=== PATIENT | female | born 1960 ===

== ENCOUNTER 2023-07-15 09:55 | Outpatient (AMB) | payer OTHER, SELFPAY ==
[2023-07-15 10:00] VITALS: BP 120/62; PULSE 64; O2SAT 98; BMI 25.7
--- NOTE | 2023-07-15 10:00 | A.OFFPC_ITS ---
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 Patient is requesting a brace for right wrist. Allergies No Known Allergies Allergy (Verified 07/15/23 10:03) Medication List - Last Reconciled 07/15/23 by Jovanny Rich MD No Known Home Meds Tobacco use date assessed: 07/15/23 Fall risk assessment: No Falls in past year Last assessed Fall Risk: 07/15/23 Dental Screening Dental Screen Date: 07/15/23 Did you have a dental visit in the last 12 months?: No Did you have a dental problem in the last 6 months where you did not have access to dental care?: No Was dental information given to patient?: Patient has dentist HPI PERSONALIZED LIVING MANAGER NURSE/Chronic conditions HPI Details New patient Prior PCP:Gene Kent Last office visit/CPE: Acute issue(s): Rash Anxiety/depression Screening?for?colon?cancer. Last colonoscopy 11/2019 recommended 3 yr f/u. Right?wrist?pain PMHx: Anxiety/Depression, SurgHx: GB 2019. C-sect x 3 FHx: Mom: CAD & Stents. afib.. Dad: intracranial tumor. SocHx: Nonsmoker but 2nd hand smoke. EtOh Rarely. No drugs HPI Comments History of Present Illness Details Documentation assistance for Jovanny Rich MD, was provided by Basil Daniel,? High School Assistant Football Coach on 07/15/2023 10:45 AM EST. [place], Dr. Rich, have read, observed, and verified documentation. PFSH Medical History (Updated 07/15/23 @ 10:38 by Basil Daniel) delivery delivered Colon polyps Surgical History (Updated 07/15/23 @ 10:08 by Radha Estes [facility]) S/P cholecystectomy Family History (Updated 07/15/23 @ 10:13 by Radha Estes CMA) Maternal Grandmother Substance abuse in family Maternal Grandfather Substance abuse in family Daughter Family history of mental disorder Social History Housing: House Patient Tobacco Use Status: Former Tobacco user e-Cigarette/Vaping Use: Never Used service: Yes Current occupational status: retired Cognitive needs: No Hearing needs: No Vision needs: Yes (Patient wears reading glasses.) Questionnaire PHQ-9 Over the last 2 weeks, how often have you been bothered by any of the following problems? 1. Little interest or pleasure in doing things: more than half the days 2. Feeling down, depressed, or hopeless: several days 3. Trouble falling or staying asleep, or sleeping too much: several days 4. Feeling tired or having little energy: several days 5. Poor appetite or overeating: several days 6. Feeling bad about yourself - or that you are a failure or have let yourself or your family down: several days 7. Trouble concentrating on things, such as reading the newspaper or watching television: several days 8. Moving or speaking so slowly that other people could have noticed. Or the opposite - being so fidgety or restless that you have been moving around a lot more than usual: several days 9. Thoughts that you would be better off or of hurting yourself in some way: not at all Total score: 9 Depression Screening Interpretation: Positive Depression Screening Done: Yes 70695 - PHQ-9 Billing: Yes Source: Developed by Drs. Brandon Evans, Siria Pack, Wei Jefferson and colleagues, with an educational shayy from [employer]. Thrive Questionnaire Date Thrive assessed: 07/15/23 I am a: Patient What is your living situation today?: I have a steady place to live Within the past 12 months, did the food you bought not last and you didn't have the money to get more?: Never true Within the past 12 months, did you worry whether your food would run out before you got money to buy more?: Never true Do you have trouble paying for medicines?: No Do you have trouble getting transportation to medical appointments?: No Do you have trouble paying your heating and electricity bill?: No Do you have trouble taking care of your child, family member or friend?: No Do you have trouble with day-to-day activities such as bathing, preparing meals, shopping, managing finances, etc.?: No Are you currently unemployed and looking for a job?: No Are you interested in more education?: Yes THRIVE Score: 0 AUDIT C Alcohol Use Questionnaire (AUDIT-C) 1. How often do you have a drink containing alcohol?: Monthly or less 2. How many drinks containing alcohol do you have on a typical day when you are drinking?: 1 or 2 3. How often do you have six or more drinks on one occasion?: Never Total Score: 1 MICAELA-7 AMB Questionnaire MICAELA-7 Date MICAELA - 7 assessed: 07/15/23 Feeling nervous, anxious, or on edge: 3 = Nearly every day Not being able to stop or control worryin = Nearly every day Worrying too much about different things: 3 = Nearly every day Trouble relaxin = Nearly every day Being so restless that it is hard to sit still: 2 = More than half the days Becoming easily annoyed or irritable: 3 = Nearly every day Feeling afraid as if something awful might happen: 1 = Several days Total MICAELA-7 score (0-4 normal; 5-9 mild; 10-14 moderate; 15-21 severe): 18 Source: Developed by Drs. Brandon Evans, Siria Pack, Wei Jefferson and colleagues, with an educational shayy from [employer]. MICAELA-7 Assessment Billing MICAELA-7 Assessment Tool: MICAELA-7 Assessment 39616 ACT Questionnaire In the past 4 weeks, how much of the time did your asthma keep you from getting as much done at work, school or at home?: A little of the time During the past 4 weeks, how often have you had shortness of breath?: Once a day During the past 4 weeks, how often did your asthma symptoms wake you up at night or earlier than usual in the morning?: Not at all During the past 4 weeks, how often have you had to use your rescue inhaler or nebulizer medication?: Not at all How would you rate your asthma control during the past 4 weeks?: Somewhat controlled Score: 19 Review of Systems Const Denies chills, Denies fatigue, Denies fever(s), Denies headache(s) and Denies weakness ENT Denies dizziness and Denies headache(s) Card Denies chest pain, Denies lightheadedness, Denies dyspnea and Denies other (Palpitations) Resp Denies cough, Denies dyspnea, Denies wheezing and Denies other ( shortness of breath) Musc Denies numbness and Denies tingling Skin/Breast Reports rash Neuro Denies dizziness, Denies headache(s), Denies numbness, Denies tingling, Denies paresthesias and Denies weakness Psych Reports anxiety and Reports depression Endo Denies fatigue Aller/Immun Denies wheezing Physical exam (Primary Care) Vital Signs: Last Vital Signs Pulse 64 07/15/23 10:00 BP 120/62 07/15/23 10:00 Pulse Ox 98 07/15/23 10:00 Oxygen Delivery Method Room Air 07/15/23 10:00 BMI result Body Mass Index 25.7 Tobacco/Smoking Status: Tobacco use Status Tobacco use date assessed 07/15/23 07/15/23 10:04 Patient Tobacco Use Status Former Tobacco user 07/15/23 10:04 e-Cigarette/Vaping Use Never Used 07/15/23 10:04 PHQ-9: PHQ-9 Score PHQ-9: Total score 9 07/15/23 10:27 Depression Screening Interpretation: Positive Thrive Assessment: Date of Thrive Assessment Date Thrive assessed 07/15/23 07/15/23 10:23 Const General: no acute distress and well developed Nutritional Appearance: well nourished Orientation/consciousness: patient oriented x3 [facility] Head: Yes normocephalic and Yes atraumatic Eyes General: appearance normal, both eyes and all related structures Pupils: Equal, round and reactive pupils present EOM: EOMs intact bilaterally Resp Effort & Inspection: normal respiratory effort Auscultation: clear to auscultation bilaterally Cardio Rate: regular rate Rhythm: regular rhythm Heart sounds: S1 normal heart sound present, S2 normal heart sound present, no gallops, no murmurs and no rubs Neuro General: patient oriented x3 and gait normal Cranial nerves: Yes Equal, round and reactive pupils present Psych Affect: normal affect Assessment and Plan Assessment & Plan (1) Anxiety and depression: Code(s): F41.9 - Anxiety disorder, unspecified; F32.A - Depression, unspecified Plan: History?of?anxiety?and?depression?and?scoring?high?in?micaela?7?and?PHQ-9 She?had?been?on?Zoloft?in?the?past?and?up?to?100?mg. Will?start?script?at?100?mg.??She?will?break?these?in?half?and?start?at?50?until ?she?is?tolerating?it?well?and?then?titrate?up?to?100?mg. Will?also?refer?her?to?the?nurse?navigator?to?be?connected?with?a?therapist (2) Rash: Code(s): R21 - Rash and other nonspecific skin eruption Plan: Rash?on?hands?and?feet.??Appears?as?eczema?or?contact?dermatitis. There?is?however?some?may?se rration?at?the?feet?and?she?may?also?have?a?concurrent?mild?fungal?infection. She?will?use?clotrimazole-betamethasone?cream?on?feet?twice?a?day She?can?use?OTC?hydrocortisone?on?hands?twice?a?day?and?use?a?good Moisturizer?throughout?her?day. Call?or?return?to?office?if?not?improving (3) Right wrist pain: Code(s): M25.531 - Pain in right wrist Plan: Right?wrist?pain?as?well?as?some?elbow?pain. She?notes?this?is?worse?when?she?does?yoga/Pilates No?radiation?into?hand Will?give?her?wrist?brace If?not?improving?would?start?occupational?therapy (4) Screening for colon cancer: Code(s): Z12.11 - Encounter for screening for malignant neoplasm of colon Plan: History?of?colon?polyps?and?was?told?to?follow-up?in?3?years. Due?last?year Referred?to?GI Orders: Referrals Gastroenterology Referral Z12.11 - Encounter for screening for malignant neoplasm of colon Nurse Navigator Referral F32.A - Depression, unspecified, F41.9 - Anxiety disorder, unspecified Medications: New sertraline (Zoloft) 100 mg PO DAILY 90 days 90 tabs 1RF clotrimazole-betamethasone 1-0.05 % 1 appl topical BID 2 weeks 45 grams 1RF Coding Level of Care Code New Pt Level 3 (04735) Diagnoses Anxiety and depression F41.9; F32.A Rash R21 Right wrist pain M25.531 Screening for colon cancer Z12.11 Additional Codes MICAELA-7 Assessment Billing - MICAELA-7 Assessment Tool: MICAELA-7 Assessment 37992 ([id number])
== END 2023-07-15 11:19 | disposition home or self-care (01) ==
PROVIDERS: PCP Family Medicine; Visit Provider Family Medicine
DX: F41.9 Anxiety disorder, unspecified (principal); F32.A Depression, unspecified; R21 Rash and other nonspecific skin eruption; M25.531 Pain in right wrist; Z12.11 Encounter for screening for malignant neoplasm of colon
CPT/HCPCS: 96127; 99203

== ENCOUNTER 2023-07-22 07:25 | Outpatient (REF) | payer OTHER, SELFPAY ==
[2023-07-22 11:13] LABS: MANUAL DIFF FLAG NO
[2023-07-22 11:27] LABS: Basophils Absolute Auto 0.1 X10*3/uL (0.0-0.2); Basophils Percent Auto 1.3 % (0-2); Eosinophils Absolute Auto 0.1 X10*3/uL (0.0-0.4); Eosinophils Percent Auto 2.4 % (0-4); Hematocrit 40.3 % (37.0-47.0); Hemoglobin 12.9 g/dl (12.0-16.0); Imm Gran Abs Auto 0.02 X10*3/uL (0.00-0.03); Imm Gran Pct Auto 0.4 % (0.0-0.4); Lymphocytes Absolute Auto 1.5 X10*3/uL (1.2-4.9); Lymphocytes Percent Auto 32.3 % (20-40); Mean Corpuscular Hemoglobin 29.5 pg (27.0-33.0); Mean Platelet Volume 10.2 fL (9.4-12.3); Monocytes Absolute Auto 0.5 X10*3/uL (0.1-1.2); Monocytes Percent Auto 11.1 % (2-11); Neutrophils Absolute Auto 2.4 x10*3/uL (2.0-8.3); Neutrophils Percent Auto 52.5 % (45-73); Platelet Count 261 X10*3/uL (160-400); Red Blood Count 4.38 X10*6/uL (4.20-5.50); Red Cell Distribution Width 13.4 % (11.0-16.0); White Blood Count 4.5 X10*3/uL (4.8-10.8)
[2023-07-22 11:32] LABS: Appearance Urine Turbid; Color Urine Dark Yellow; Glucose Urine UA Negative (Negative); Leukocyte Esterase Urine Moderate (2+) (Negative); Nitrite Urine Negative (Negative); PH 5.5 (5.0-9.0); UMIC TRIGGER UA YES; Urine Blood Trace (Negative); Urine Ketones 15 mg/dL (Negative); Urine Protein Trace mg/dL (Neg-Trace)
[2023-07-22 11:47] LABS: Alanine Aminotransferase 17 U/L (0-31); Albumin Level 4.7 g/dL (3.5-5.0); Alkaline Phosphatase 70 U/L (39-117); Anion Gap 13 (12-20); Aspartate Amino Transferase 17 U/L (5-31); Bilirubin Total 0.7 mg/dL (0.0-1.0); Blood Urea Nitrogen 16 mg/dL (9-16); Calcium 9.9 mg/dL (8.4-10.2); Carbon Dioxide 27 mmol/L (22-29); Chloride 104 mmol/L (96-108); Cholesterol 297 mg/dL (<200); Estimated Glomerular Filt Rate > 60; Glucose Fasting 82 mg/dL (60-99); HDL Cholesterol 83 mg/dL (>40); LDL Cholesterol Calculated 196 mg/dL (<100); Potassium 3.8 mmol/L (3.3-5.1); Sodium 140 mmol/L (135-145); Total Protein 7.3 g/dL (6.5-8.0); Triglycerides 91 mg/dL (<150)
[2023-07-22 12:06] LABS: TSH reflex Free T4 2.05 uIU/mL (0.32-4.0); Vitamin D 25-OH Total 42.9 ng/mL (>30)
[2023-07-22 12:10] LABS: Microalbum/Creatinine Ratio Ur 24.8 ug/mg cr (<30)
[2023-07-22 12:32] LABS: Bacteria Urine 1+ (None Seen); WBC Urine >50 /HPF (0-5)
[2023-07-22 12:33] LABS: Specific Gravity - Urine >= 1.030 (1.005-1.025)
== END 2023-07-22 07:26 | disposition home or self-care (01) ==
LOC: HO.WFDLDS 07:25
PROVIDERS: Visit Provider Family Medicine
DX: Z00.00 Encounter for general adult medical examination without abnormal findings (principal); E55.9 Vitamin D deficiency, unspecified; I10 Essential (primary) hypertension
CPT/HCPCS: 36415; 80053; 80061; 81001; 82043; 82306; 82570; 84443; 85025

== ENCOUNTER 2023-08-12 10:53 | Outpatient (AMB) | payer OTHER, SELFPAY ==
[2023-08-12 11:00] VITALS: BP 135/64; PULSE 70; O2SAT 97; BMI 24.3
--- NOTE | 2023-08-12 11:00 | A.OFFPC_ITS ---
Vital Signs 08/12/23 11:00 Height 5 ft 5 in Weight 146 lb BMI 24.3 BP 135/64 Blood Pressure Location Lt brachial Position Sitting Pulse 70 Pulse Source Pulse Oximeter Pulse Oximetry (%) 97 Oxygen Delivery Method Room Air Intake Visit Reasons: CPE with f/u labs and health maint. 30 mins Intake Note: Patient is here for a physical, follow up on labs, and health maintenance. Patient has not heard from gastroenterology. She feels she may need a different therapist. Allergies codeine Adverse Reaction (Mild, Verified 08/12/23 11:04) hives, itching Tobacco use date assessed: 08/12/23 Fall risk assessment: No Falls in past year Last assessed Fall Risk: 08/12/23 Dental Screening Dental Screen Date: 07/15/23 HPI CPE with f/u labs and health maint. 30 mins HPI Details 63 y/o female presents for a CPE with f/ u labs and health maintenance. Labs were drawn 07/22/23. Reviewed labs with pt. Triglycerides 91. TC 297. LDL elevated at 196. HDL 83. 1+ urine bacteria, concentrated urine. Pt reports mood improved on sertraline 100mg daily. She does note she feels like she needs a new therapist. HPI Comments History of Present Illness Details Documentation assistance for Jovanny Rich MD, was provided by Basil Daniel, Director Online Marketing on 08/12/2023 11:40 AM RUBI. I, Dr. Rich, have read, observed, and verified documentation. [facility] Medical History delivery delivered Colon polyps Surgical History S/P cholecystectomy Family History Maternal Grandmother Substance abuse in family Maternal Grandfather Substance abuse in family Daughter Family history of mental disorder Social History Housing: House Patient Tobacco Use Status: Former Tobacco user e-Cigarette/Vaping Use: Never Used service: Yes Current occupational status: retired Cognitive needs: No Hearing needs: No Vision needs: Yes (Patient wears reading glasses.) Questionnaire PHQ-9 Over the last 2 weeks, how often have you been bothered by any of the following problems? 1. Little interest or pleasure in doing things: several days 2. Feeling down, depressed, or hopeless: not at all 3. Trouble falling or staying asleep, or sleeping too much: not at all 4. Feeling tired or having little energy: not at all 5. Poor appetite or overeating: several days 6. Feeling bad about yourself - or that you are a failure or have let yourself or your family down: not at all 7. Trouble concentrating on things, such as reading the newspaper or watching television: not at all 8. Moving or speaking so slowly that other people could have noticed. Or the op posite - being so fidgety or restless that you have been moving around a lot more than usual: not at all 9. Thoughts that you would be better off or of hurting yourself in some way: not at all Total score: 2 Depression Screening Interpretation: Negative Depression Screening Done: Yes 09394 - PHQ-9 Billing: Yes Source: Developed by Drs. Brandon Evans, Siria Pack, Wei Jefferson and colleagues, with an educational shayy from [employer]. Thrive Questionnaire Date Thrive assessed: 07/15/23 MICAELA-7 AMB Questionnaire MICAELA-7 Date MICAELA - 7 assessed: 08/12/23 Feeling nervous, anxious, or on edge: 0 = Not at all Not being able to stop or control worryin = Not at all Worrying too much about different things: 0 = Not at all Trouble relaxin = Not at all Being so restless that it is hard to sit still: 0 = Not at all Becoming easily annoyed or irritable: 0 = Not at all Feeling afraid as if something awful might happen: 0 = Not at all Total MICAELA-7 score (0-4 normal; 5-9 mild; 10-14 moderate; 15-21 severe): 0 Source: Developed by Drs. Brandon Evans, Siria Pack, Wei Jefferson and colleagues, with an educational shayy from [employer]. MICAELA-7 Assessment Billing MICAELA-7 Assessment Tool: MICAELA-7 Assessment 95957 Review of Systems Const Denies chills, Denies fatigue, Denies fever(s), Denies headache(s) and Denies weakness Eyes Denies change in vision ENT Denies dizziness and Denies headache(s) Card Denies dyspnea Resp Denies cough, Denies dyspnea, Denies wheezing and Denies other (shortness of breath) GI Denies abdominal pain, Denies melena, Denies hematochezia, Denies change in bowel habits, Denies dyspepsia and Denies nausea Denies hematuria and Denies dysuria Musc Denies numbness and Denies tingling Skin/Breast Denies rash, Denies unusual bruising and Denies wounds Neuro Denies dizziness, Denies headache(s), Denies numbness, Denies Sensory deficit (Neuro), Denies tingling and Denies weakness Psych Denies anxiety and Denies depression Endo Denies fatigue Aris/Lymph Denies easy bleeding and Denies easy bruising Aller/Immun Denies wheezing Physical exam (Primary Care) Vital Signs: Last Vital Signs Pulse 70 08/12/23 11:00 BP 135/64 08/12/23 11:00 Pulse Ox 97 08/12/23 11:00 Oxygen Delivery Method Room Air 08/12/23 11:00 BMI result Body Mass Index 24.3 Tobacco/Smoking Status: Tobacco use Status Tobacco use date assessed 08/12/23 08/12/23 11:05 Patient Tobacco Use Status Former Tobacco user 08/12/23 11:01 e-Cigarette/Vaping Use Never Used 08/12/23 11:01 PHQ-9: PHQ-9 Score PHQ-9: Total score 2 08/12/23 11:37 Depression Screening Interpretation: Negative Thrive Assessment: Date of Thrive Assessment Date Thrive assessed 07/15/23 08/12/23 11:01 Const General: well developed; No acute distress Nutritional Appearance: well nourished Orientation/consciousness: patient oriented x3 HENMT Other: Posterolateral neck mass, L, 1.5cm Head: Yes normocephalic and Yes atraumatic Ears: hearing grossly normal bilaterally and TM's normal bilaterally General nose exam: Normal external nose present and Normal nares present Mouth: Normal oral and palatal mucosa present and moist mucous membranes Teeth and gingiva: dentition normal Throat: Yes posterior oropharynx normal Eyes General: appearance normal, both eyes and all related structures Pupils: Equal, round and reactive pupils present EOM: EOMs intact bilaterally Neck Neck: Yes normal visual inspection, Yes no lymphadenopathy and Yes trachea midline Thyroid: Thyroid normal Carotids: no bruits Lymphatic: no lymphadenopathy noted Chest Chest palpation & inspection: normal inspection of the chest Resp Effort & Inspection: normal respiratory effort Auscultation: clear to auscultation bilaterally Cardio Rate: regular rate Rhythm: regular rhythm Heart sounds: S1 normal heart sound present, S2 normal heart sound present, no gallops, no murmurs and no rubs Bruits: no abdominal aortic bruits and no carotid bruits GI Palpation (GI): No Abdominal aortic bruit present, Soft to palpation, nontender, No hepatosplenomegaly present and No Rebound tenderness present Auscultation: normal bowel sounds General: Yes no CVA tenderness Back/Spine/Pelvis Back: no CVA tenderness Cervical Spine: cervical ROM normal and No Cervical spine tenderness Thoracic/Lumbar Spine: thoraco-lumbar ROM normal, No pain with thoraco-lumbar ROM, No thoracic spinal tenderness and No lumbar spinal tenderness Skin Lesions: no lesions Rashes: no rashes Trauma: no lacerations or abrasions Wounds: no wounds Nails: normal Neuro General: patient oriented x3 and gait normal Cranial nerves: Yes Equal, round and reactive pupils present Cognition (Neuro): normal cognition Gait exam (Neuro): Normal gait present Motor exam (neuro): 5/5 motor strength present throughout Sensory Exam: No Sensory deficit (Neuro) Deep tendon reflexes (DTR's): Right patellar reflex intensity grade: 2+ and Left patellar reflex intensity grade: 2+ Extrem General: Yes normal to inspection and No edema Psych Appearance: grossly normal Affect: normal affect Attitude: cooperative Thought process: Normal thought process present Assessment and Plan Assessment & Plan (1) Hyperlipidemia: Code(s): E78.5 - Hyperlipidemia, unspecified Plan: Lipids?are?significantly?elevated.??HDL?is?also?rather?high. She?will?work?at?a?diet?lower?in?saturated?fats?and?cholesterol Will?recheck?in?3?months?and?discuss (2) Lump on neck: Code(s): R22.1 - Localized swelling, mass and lump, neck Plan: 1.5?cm?Lump?at?left?posterolateral?aspect?of?her?neck?which?is?tender?with?range ?of?movement Possible?calcified?lymph?node?or?muscle?scar. Check?ultrasound (3) Anxiety and depression: Code(s): F41.9 - Anxiety disorder, unspecified; F32.A - Depression, unspecified Plan: Much?improved?on?Zoloft?100?mg?daily Continue?current?medication Will?ask?the?nurse?navigator?to?help?connect?her?with?another?therapist?as?she?d id?not?feel?comfortable?with?the?1?she?has. (4) Bacteria in urine: Code(s): R82.71 - Bacteriuria Plan: Urine?maximally?concentrated?an d?she?has?no?symptoms.??This?appears?to?be?contamination/bacteriuria?and?maximal ly?concentrated?urine. Increase?hydration. Will?recheck?with?next?labs (5) Breast cancer screening by mammogram: Code(s): Z12.31 - Encounter for screening mammogram for malignant neoplasm of breast Plan: Mammogram?ordered?by?her?video photographer?at?[facility] Ask?her?to?have?them?forward?the?results?so?I?can?follow?along (6) Screening for colon cancer: Code(s): Z12.11 - Encounter for screening for malignant neoplasm of colon Plan: Had?made?a?referral?to?gastroenterology?but?she?has?not?heard?back?from?them?yet .??Asked?the?office?to?check?on?the?status?of?this?referral. (7) Screening for cervical cancer: Code(s): Z12.4 - Encounter for screening for malignant neoplasm of cervix Plan: Had?recent?Pap?smear?but?does?not?have?her?results?yet.??Asked?her?to?have?them? forward?the?results. Orders: Orders US soft tiss head and/or neck Today R22.1 - Localized swelling, mass and lump, neck UA and rflx microscopic Today Z00.00 - Encounter for general adult medical examination without abnormal findings Lipid Panel Today E78.5 - Hyperlipidemia, unspecified, Z00.00 - Encounter for general adult medical examination without abnormal findings Comprehensive [place]. Panel Fast Today E78.5 - Hyperlipidemia, unspecified, Z00.00 - Encounter for general adult medical examination without abnormal findings Coding Level of Care Code Est Pt Level 3 (31451) Est Pt Prev Care 40-64y(38444) Diagnoses Hyperlipidemia E78.5 Lump on neck R22.1 Anxiety and depression F41.9; F32.A Bacteria in urine R82.71 Breast cancer screening by mammogram Z12.31 Screening for colon cancer Z12.11 Screening for cervical cancer Z12.4 Additional Codes MICAELA-7 Assessment Billing - MICAELA-7 Assessment Tool: MICAELA-7 Assessment 49005 ([id number])
== END 2023-08-12 12:07 | disposition home or self-care (01) ==
PROVIDERS: PCP Family Medicine; Visit Provider Family Medicine
DX: Z00.01 Encounter for general adult medical examination with abnormal findings (principal); E78.5 Hyperlipidemia, unspecified; R22.1 Localized swelling, mass and lump, neck; F41.9 Anxiety disorder, unspecified; F32.A Depression, unspecified; R82.71 Bacteriuria; Z12.31 Encounter for screening mammogram for malignant neoplasm of breast; Z12.11 Encounter for screening for malignant neoplasm of colon; Z12.4 Encounter for screening for malignant neoplasm of cervix
CPT/HCPCS: 99214; 99396

== ENCOUNTER 2023-08-21 08:23 | Outpatient (REF) | payer OTHER, SELFPAY ==
--- NOTE | ~2023-08-21 | US_ITS ---
EXAMINATION: US SOFT TISSUE HEAD/NECK CLINICAL INFORMATION: Left posterolateral neck mass 1.5 cm. COMPARISON: None available. TECHNIQUE: Linear transducer mcarthur-scale and color Doppler examination with attention to the region of concern in the left posterolateral neck. FINDINGS: Targeted ultrasound images were obtained by the skinning machine feeder of the area of concern as indicated by the patient in the left posterior lateral neck with patient in sitting position and demonstrated no discrete mass, adenopathy or fluid collection. Radiologist was not in attendance. Images were later provided for interpretation. US/US soft tiss head and/or neck IMPRESSION: No discrete mass, adenopathy or fluid collection identified in the area of concern as indicated by the patient in the left posterior lateral neck. Decisions regarding further imaging, treatment or biopsy should be based on the clinical exam, as not all abnormalities are detectable on ultrasound studies. This study was presented today August 27, 2023 for interpretation. Stat results provided at this time as requested by referring provider.
== END 2023-08-21 08:24 | disposition home or self-care (01) ==
LOC: HO.HMGCX 08:23
PROVIDERS: PCP Family Medicine; Visit Provider Family Medicine
DX: R22.1 Localized swelling, mass and lump, neck (principal)
CPT/HCPCS: 76536

== ENCOUNTER 2023-10-02 10:07 | Outpatient (AMB) | payer OTHER, SELFPAY ==
--- NOTE | 2023-10-02 10:11 | A.OFFVIS_ITS ---
Vital Signs 3 10/02/23 10:13 Height 5 ft 5 in Weight 151 lb 10.848 oz BMI 25.2 BP 118/64 Blood Pressure Location Lt brachial Position Sitting Pulse 59 Intake Visit Reasons: Colonoscopy screening Intake Note: New patient in office today for colonoscopy screning. CC: Patient's last colonoscopy about 5 years ago at [facility] and she was advised to repeat in 3 years. Polyps removed at that time. She s/p cholecystectomy 06/2019 and ever since she states that she has diarrhea pretty much every day. Brand Protection Manager Required: No Accompanied by: Self / Same As Patient Allergies codeine Adverse Reaction (Mild, Verified 11/04/23 15:22) hives, itching HPI HPI Colonoscopy screening: Details: 63-year-old female here for preprocedural meeting to discuss a screening colonoscopy. She is referred by Jovanny Rich Asthma High cholesterol Anxiety and depression History of colon polyps * SURGICAL HISTORY Cholecystectomy section LEEP * ALLERGIES Codeine - itching * [facility]: Laboratory Tests 07/22/23 07:27 WBC 4.5 L Hgb 12.9 Hct 40.3 Plt Count 261 Estimated GFR > 60 Total Bilirubin 0.7 AST 17 ALT 17 Alkaline Phosphatase 70 TSH 2.05 TODAY'S VISIT Her last colonoscopy was in 2019 and was [place] [facility] [place] [facility]. Apparently she was told she would colon polyps in the request a 3 year follow-up.They said I came in just in time because they were not the good type. We will try to get the colonoscopy and pathology report. She can not drink large volumes and did better with low volume prep even if she has to pay some more OOP. She suffers diarrhea since her tyrese, she was unaware of the role of fats and she does keto, but dislikes meds but we discuss options. She declines for now. NO anes or sed problems Mild asthma,no cardiac No ID problems. She had some troubling polyps removed in 2019 unsure the exact pathology trying to get reports. She had a paternal uncle with crc. [facility] Medical History (Updated 11/04/23 @ 15:32 by Basil Daniel) Screening for colon cancer Adult general medical exam Breast cancer screening by mammogram Screening for cervical cancer Hyperlipidemia delivery delivered Colon polyps Surgical History H/O LEEP History of section H/O colonoscopy S/P cholecystectomy Family History Maternal Grandmother Substance abuse in family Maternal Grandfather Substance abuse in family Daughter Family history of mental disorder Paternal Grandmother Uterine cancer Maternal Uncle Throat cancer Family/Other Brain cancer Social History Housing: House Patient Tobacco Use Status: Former Tobacco user e-Cigarette/Vaping Use: Never Used service: Yes Current occupational status: retired Cognitive needs: No Hearing needs: No Vision needs: Yes (Patient wears reading glasses.) Review of Systems Const Denies fatigue, Denies fever(s), Denies night sweats, Denies poor appetite and Denies weight loss ENT Reports Normal hearing present, Denies dental pain, Denies dysphagia, Denies hearing loss, Denies mouth pain, Denies odynophagia, Denies throat swelling, Denies tongue swelling and Reports other (Dentition adequate) Card Reports no additional complaints Resp Reports no additional complaints GI Details: Denies abdominal pain, Denies melena, Denies bloating, Denies hematochezia, Denies constipation, Denies GI cramping, Denies dysphagia, Denies excessive flatus, Denies early satiety, Denies heartburn, Reports diarrhea, Denies nausea, Denies odynophagia, Denies vomiting and Denies hematemesis Skin/Breast Denies pruritus, Denies lesions, Denies rash and Denies jaundice Neuro Reports Normal hearing present and Denies Abnormal speech present Endo Denies fatigue Aller/Immun Denies throat swelling and Denies tongue swelling Physical Exam Vital Signs: Last Vital Signs Pulse 59 10/02/23 10:13 BP 118/64 10/02/23 10:13 BMI result Body Mass Index 25.2 Const General: cooperative, no acute distress, well developed and well groomed Nutritional Appearance: average body habitus and well nourished Orientation/consciousness: oriented to person, oriented to place and oriented to time Limitations: No language barrier HEENT Head: Yes normocephalic and Yes atraumatic Eyes General: appearance normal, both eyes and all related structures Pupils: Equal, round and reactive pupils present Neck Neck: Yes normal visual inspection and Yes no lymphadenopathy Thyroid: Thyroid normal Resp Effort & Inspection: normal respiratory effort and able to speak in complete sentences Auscultation: clear to auscultation bilaterally Cardio Rate: regular rate Rhythm: regular rhythm Heart sounds: Normal, physiologic split S2 sound present Peripheral pulses: radial pulses present and posterior tibial pulses present GI Inspection: No distended and No Abdominal panniculus present Palpation (GI): Soft to palpation, nontender, no guarding, not rigid and No hepatosplenomegaly present Percussion: Yes normal to percussion Auscultation: normal bowel sounds Rectal Exam - Female: deferred Abdomen image: 2 1. surgical scar Skin General skin exam: no rashes or lesions noted, turgor normal, skin not dry, no jaundice, No spider nevi and no striae Rashes: no rashes Nails: normal Neuro General: oriented to person, oriented to place and oriented to time Cranial nerves: Yes Equal, round and reactive pupils present and Yes Normal hearing present Speech: No Abnormal speech present Extrem General: Yes normal to inspection, No clubbing, No cyanosis and No edema Psych Appearance: grossly normal and well kempt Mental Status: mental status grossly normal Speech and movement: Normal speech and movement present Affect: normal affect Attitude: cooperative Thought process: Normal thought process present and not confabulating Thought content: Normal thought content present Insight: Fair insight present (Psych) Judgement: Fair judgement present (Psych) Assessment & Plan Assessment & Plan (1) Pre-op examination: Code(s): Z01.818 - Encounter for other preprocedural examination Category: Medical (2) Tubular adenoma of colon: Comment: 2019 [place] [facility] [place] with a 3 year follow-up Code(s): D12.6 - Benign neoplasm of colon, unspecified Category: Medical Plan Her last colonoscopy was in 2019 and was done [place] [facility]. Apparently she was told she would colon polyps in the request a 3 year follow-up.They said I came in just in time because they were not the good type. We will try to get the colonoscopy and pathology report. She can not drink large volumes and did better with low volume prep even if she has to pay some more OOP. She suffers diarrhea since her tyrese, she was unaware of the role of fats and she does keto, but dislikes meds but we discuss options. She declines for now. NO anes or sed problems Mild asthma,no cardiac No ID problems. She had some troubling polyps removed in 2019 unsure the exact pathology trying to get reports. She had a paternal uncle with crc. Orders: Orders 2 Colonoscopy - GI Use Only 10/02/23 Z01.818 - Encounter for other preprocedural examination, Z98.891 - History of uterine scar from previous surgery Medications: New 2 peg 3350-electrolytes 236-22.74-6.74 -5.86 gram (Golytely) until fecal effluent is clear; do not exceed a total volume of 2,000 mL 240 mL PO Q10M 4,000 mL 0RF 1 day Z12.11 - Encounter for screening for malignant neoplasm of colon bisacodyl (Dulcolax (bisacodyl)) 10 mg (2 x 5 mg) PO BEDTIME 4 tabs 0RF 2 days sodium,potassium,mag sulfates 17.5-3.13-1.6 gram (Suprep Bowel Prep Kit) 480 mL orally; FOR COLONOSCOPY PREP 354 mL 0RF Coding Level of Care Code New Pt Level 3 (97216) Diagnoses Pre-op examination Z01.818 Tubular adenoma of colon D12.6
[2023-10-02 10:13] VITALS: BP 118/64; PULSE 59; BMI 25.2
== END 2023-10-02 11:01 | disposition home or self-care (01) ==
PROVIDERS: PCP Family Medicine; Visit Provider Nurse Practitioner
DX: Z01.818 Encounter for other preprocedural examination (principal); D12.6 Benign neoplasm of colon, unspecified
CPT/HCPCS: 99203

== ENCOUNTER → 2023-10-02 10:07 | Outpatient (BNVA) | payer OTHER, SELFPAY | PROVIDERS: PCP Family Medicine; Visit Provider Nurse Practitioner | DX: Z01.818 Encounter for other preprocedural examination (principal); D12.6 Benign neoplasm of colon, unspecified | CPT/HCPCS: 99202 ==

== ENCOUNTER 2023-10-11 07:51 | Day surgery (SDC) | payer OTHER, SELFPAY ==
[2023-10-11 08:06] VITALS: BMI 24.1
[2023-10-11 08:09] VITALS: PULSE 59; RESP 18; TEMP 36.3; O2SAT 98
[2023-10-11 08:21] VITALS: BP 118/62; PULSE 59; RESP 18; TEMP 36.3; O2SAT 98; BMI 24.1
[2023-10-11] MEDS: Lactated Ringers 1,000 ML 50 ML IVCONT (08:32)
--- NOTE | 2023-10-11 09:34 | PC.NURSE ---
pt c/o anxiety and stress h/a requesting valium, updated pt that both anesthesia and surgical consents need to be signed first. text sent to dr. mai and dr. ramírez. dr. mai responded. Mana Patel VEHICLE DELIVERY WORKER stated eta for current pt in endo approximately 20 , pt aware. lights off, repos'd. offer cool cloth to forehead declined. pt verbalizes understanding.
--- NOTE | 2023-10-11 09:40 | PC.NURSE ---
pt states last time she had this procedure she was given valium shortly after arriving in preop. dr. mai aware.
--- NOTE | 2023-10-11 09:45 | MHC.SHP ---
Pre-Procedural Eval Section A - 24 Hr Update-Section A only Date of Service: 10/11/23 The patient is an INPATIENT: No Changes since office visit: Yes Patient answered all questions; No Cold of Flu in the past 2 weeks, No New Medical Problems and No Changes in Medication The patient has been examined within 24 hours of the surgical procedure. The History & Physical has been completed within 30 days and I have reviewed it.: Yes Section B - Complete if H&P > 30 days Chief Complaint: Surveillance for colon polyps Allergies: Allergies Allergy/AdvReac Type Severity Reaction Status Date / Time codeine AdvReac Mild hives, Verified 10/11/23 08:18 itching Exam Surgical H&P Exam: Normal: Heart, Normal: Lungs, Normal: Extremities and Normal: Abdomen Plan Diagnosis/Plan: Unchanged I have reviewed the history and physical and performed a pertinent physical examination on my patient. No changes have occurred unless specified. Time Spent With Patient Time: Total time managing care of this patient today ____ minutes.
--- NOTE | 2023-10-11 09:54 | HO.ANESPROP2 ---
HPI - Anesthesia Eval Consult details Narrative: for colonoscopy PMFSH Active Problems Active Problems: All Active Problems Tubular adenoma of colon (Acute) Pre-op examination (Acute) Lump on neck (Acute) Bacteria in urine (Acute) Hypercholesterolemia (Acute) Rash (Acute) Right wrist pain (Acute) Anxiety and depression (Acute) Past Medical History Medical History Screening for colon cancer Adult general medical exam Breast cancer screening by mammogram Screening for cervical cancer Hyperlipidemia delivery delivered Colon polyps Family History Family History Maternal Grandmother Substance abuse in family Maternal Grandfather Substance abuse in family Daughter Family history of mental disorder Paternal Grandmother Uterine cancer Maternal Uncle Throat cancer Family/Other Brain cancer Family history of problems with anesthesia: No Surgical History Surgical History H/O LEEP History of section H/O colonoscopy S/P cholecystectomy History of Problems with Anesthesia: No Social History Social History Housing: House Patient Tobacco Use Status: Former Tobacco user e-Cigarette/Vaping Use: Never Used Use of substances other than those prescribed or required for medical reasons: No Are you DNR?: No Advance Directives: No Advance Directives Information Provided: Yes service: Yes Current occupational status: retired Cognitive needs: No Hearing needs: No Vision needs: Yes (Patient wears reading glasses.) Meds Allergies Allergy/AdvReac Type Severity Reaction Status Date / Time codeine AdvReac Mild hives, Verified 10/11/23 08:18 itching Active Medications: Current Medications Lactated Ringer's (Lr) 1,000 mls @ 50 mls/hr IVCONT .Q20H NIKIA Last Admin: 10/11/23 08:32 Dose: 50 mls/hr Exam Height,Weight and Vital Signs: Height 5 ft 5 in Weight 65.771 kg Last Vital Signs Temp 97.4 F 10/11/23 08:21 Pulse 59 10/11/23 08:21 Resp 18 10/11/23 08:21 BP 118/62 10/11/23 08:21 Pulse Ox 98 07/05/24 08:21 O2 Del Method Room Air 10/11/23 08:21 Airway Mallampati Class: II TM Dist: >3cm Neck ROM: Full Loose/Missing/Broken Teeth: No Heart: ok Lungs: ok Assessment and Plan Assessment Anesthesia Assessment: Anesthesia Plan Discussed and Chart Reviewed Final Anesthetic Review Family History of Problems with Anesthesia: No History of Problems with Anesthesia: No NPO: Yes ASA Class: II Final Preanesthetic Review: No Changes in Pt Med Stat, Meds/Allgs Chart Reviewed, Consent Obtained/Reviewed and Anes Risks/Benef Reviewed Patient Risk: Low Procedure Risk: Low Anesthetic Plan Anesthetic Plan: MAC: and Agree w/ Assess. and Plan Disposition: Standard PACU
--- NOTE | 2023-10-11 10:52 | HO.OPN-COLON ---
Colonoscopy Operative Note Operative Note Date of Service: 10/11/23 Narrative: COLONOSCOPY TILL CECUM WITH SNARE POLYPECTOMY AND SUBMUCOSAL INJECTION Pre-op diagnosis: Surveillance of colon polyps. Post-op diagnosis:? Colon polyps, Diverticulosis, hemorrhoids Endoscopist:? Dhaval Durbin MD Anesthesia:?MAC Consent: Indications for the procedure and potential complications of bleeding, perforation, reaction to medications and missed diagnosis were discussed with the patient and informed consent was obtained. Instrument: Olympus PCF H 190 L variable stiffness pediatric colonoscope Monitoring: Vital signs and clinical assessment, intermittent blood pressure monitoring, continuous EKG monitoring, Pulse oximetry and Carbon Dioxide monitoring were done throughout the procedure. Please see anesthesia flowsheet. Colon withdrawl time was 30 minutes. Procedure: The patient was placed in the left lateral decubitis position and pre-procedure medications were administered. After a digital rectal examination of the ano-rectum, the video colonoscope was inserted into the rectum and advanced through the colon to the cecum. The colonoscope was slowly withdrawn in a retrograde panoramic fashion and the colon mucosa was carefully examined including a retroflexed view of the rectum. Findings and interventions are described below. Procedure Difficulty: Colon was long and tortuous and there was some loop formation. Findings: Terminal Ileum: Not evaluated Cecum: Nodular appearing mucosa in the cecum - random biopsies were obtained Ascending Colon: A 12-15 mm sessile polyp in the distal ascending colon- removed with a stiff hot snare. A 2 to 2.5 cms sessile polyp in the distal AC at 110 cms - removed with a stiff hot snare. Polypectomy site was marked with Chhaya ink. Polyp was retrieved with the Montero net Transverse Colon: Normal Descending Colon: Moderate diverticulosis Sigmoid Colon: Severe diverticulosis with luminal narrowing Rectum: Normal Ano-rectum: Moderate internal hemorrhoids Colon preparation: Good after copious irrigation and fair in the right colon (due to a thin layer of scattered adherent stool which could not be flushed) [place] Bowel Preparation Scale Right colon; 1 Transverse colon: 2 Left colon; 2 (0 = Unprepared colon segment with mucosa not seen due to solid stool that cannot be cleared. 1 = Portion of mucosa of the colon segment seen, but other areas of the colon segment not well seen due to staining, residual stool and/or opaque liquid. 2 = Minor amount of residual staining, small fragments of stool and/or opaque liquid, but mucosa of colon segment seen well. 3 = Entire mucosa of colon segment seen well with no residual staining, small fragments of stool or opaque liquid) Impression and Post Procedure Diagnosis: Colonoscopy Findings: Two medium sized polyps were removed Moderate diverticulosis seen in the left colon Moderate hemorrhoids on retroflexed exam. Plan: Pt has a FU appointment on with 11/06/23, July EDDIE Willis Repeat Colonoscopy in 1-2 years if polyps are adenomatous and due to fair prep in the right colon. Above findings were reviewed with the patient and relevant handouts were given and the discharge area.
[2023-10-11 10:56] VITALS: BP 111/46; PULSE 65; RESP 20; TEMP 36.6; O2SAT 98
[2023-10-11 11:11] VITALS: BP 112/60; PULSE 62; RESP 18; TEMP 36.2; O2SAT 99
== END 2023-10-11 12:01 | disposition home or self-care (01) ==
PROVIDERS: PCP Family Medicine; Visit Provider Internal Medicine Gastroenterology
PROC: 0DJD8ZZ Inspection of Lower Intestinal Tract, Via Natural or Artificial Opening Endoscopic (ICD-10-PCS; CPT 45378; principal; 2023-10-11 09:30)
DX: Z12.11 Encounter for screening for malignant neoplasm of colon (principal); Z86.010 Personal history of colon polyps; D12.2 Benign neoplasm of ascending colon; K57.30 Diverticulosis of large intestine without perforation or abscess without bleeding; K64.8 Other hemorrhoids; R19.7 Diarrhea, unspecified; E78.00 Pure hypercholesterolemia, unspecified; J45.909 Unspecified asthma, uncomplicated; F41.8 Other specified anxiety disorders; Z79.899 Other long term (current) drug therapy; Z90.49 Acquired absence of other specified parts of digestive tract; Z98.891 History of uterine scar from previous surgery; Z88.5 Allergy status to narcotic agent; Z87.891 Personal history of nicotine dependence
CPT/HCPCS: 45385; 45380; 45381; 88305; J2250; J2704

== ENCOUNTER → 2023-10-11 07:51 | Outpatient (BNV) | payer OTHER, SELFPAY | PROVIDERS: PCP Family Medicine; Visit Provider Internal Medicine Gastroenterology | DX: Z12.11 Encounter for screening for malignant neoplasm of colon (principal); Z86.010 Personal history of colon polyps; K63.5 Polyp of colon; K57.90 Diverticulosis of intestine, part unspecified, without perforation or abscess without bleeding; K64.8 Other hemorrhoids | CPT/HCPCS: 45380; 45381; 45385 ==

== ENCOUNTER 2023-10-31 07:32 | Outpatient (REF) | payer OTHER, SELFPAY ==
[2023-10-31 11:49] LABS: Appearance Urine Clear; Color Urine Yellow; Glucose Urine UA Negative (Negative); Leukocyte Esterase Urine Trace (Negative); Nitrite Urine Negative (Negative); PH 5.5 (5.0-9.0); Specific Gravity - Urine 1.015 (1.005-1.025); UMIC TRIGGER UA YES; Urine Blood Negative (Negative); Urine Ketones Trace mg/dL (Negative); Urine Protein Negative (Neg-Trace)
[2023-10-31 11:56] LABS: Bacteria Urine None Seen (None Seen); Hyaline Casts Urine 0-2 /LPF (0-2); RBC Urine 0-2 /HPF (0-2); Squamous Epithelial Cell Urine 0-2 /HPF (0-2); WBC Urine 0-5 /HPF (0-5)
[2023-10-31 12:11] LABS: Alanine Aminotransferase 19 U/L (0-31); Albumin Level 4.7 g/dL (3.5-5.0); Alkaline Phosphatase 69 U/L (39-117); Anion Gap 15 (12-20); Aspartate Amino Transferase 17 U/L (5-31); Bilirubin Total 0.6 mg/dL (0.0-1.0); Blood Urea Nitrogen 14 mg/dL (9-16); Calcium 9.5 mg/dL (8.4-10.2); Carbon Dioxide 25 mmol/L (22-29); Chloride 105 mmol/L (96-108); Cholesterol 309 mg/dL (<200); Estimated Glomerular Filt Rate > 60; Glucose Fasting 77 mg/dL (60-99); HDL Cholesterol 72 mg/dL (>40); LDL Cholesterol Calculated 213 mg/dL (<100); Sodium 141 mmol/L (135-145); Total Protein 7.2 g/dL (6.5-8.0); Triglycerides 124 mg/dL (<150)
== END 2023-10-31 07:33 | disposition home or self-care (01) ==
LOC: HO.WFDLDS 07:32
PROVIDERS: Visit Provider Family Medicine
DX: Z00.00 Encounter for general adult medical examination without abnormal findings (principal); E78.5 Hyperlipidemia, unspecified
CPT/HCPCS: 36415; 80053; 80061; 81001

== ENCOUNTER 2023-11-04 15:16 | Outpatient (AMB) | payer OTHER, SELFPAY ==
[2023-11-04 15:19] VITALS: BP 128/82; PULSE 60; O2SAT 98; BMI 24.5
--- NOTE | 2023-11-04 15:19 | MHC.PC.OV ---
Vital Signs 11/04/23 15:19 Height 5 ft 5 in Weight 147 lb 4 oz BMI 24.5 BP 128/82 Blood Pressure Location Rt brachial Position Sitting Pulse 60 Pulse Source Pulse Oximeter Pulse Oximetry (%) 98 Oxygen Delivery Method Room Air Intake Visit Reasons: Diverticulosis from colonoscopy results/ FU/labs Intake Note: Mary Carmen is a 63 year old female who presents to the office today for a f/u diverticulosis from colonoscopy and f/u labs. Pt states she is otherwise feeling well. Allergies codeine Adverse Reaction (Mild, Verified 11/04/23 15:22) hives, itching Medication List - Last Reconciled 11/04/23 by Jovanny Rich MD clotrimazole-betamethasone 1-0.05 % 1 appl topical BID 2 weeks sertraline (Zoloft) 100 mg PO DAILY 90 days Tobacco use date assessed: 08/12/23 Dental Screening Dental Screen Date: 07/15/23 HPI Diverticulosis from colonoscopy results/ FU/labs HPI Details 63 y/o female presents to f/u diverticulosis from colonoscopy results. Also f/u lipids. Labs drawn 10/31/23. Reviewed labs with pt. Triglycerides 124. TC 309. LDL 213. HDL 72. She notes she had attempted dietary changes. [facility] Medical History (Updated 11/04/23 @ 15:32 by Basil Daniel) Screening for colon cancer Adult general medical exam Breast cancer screening by mammogram Screening for cervical cancer Hyperlipidemia delivery delivered Colon polyps Surgical History H/O LEEP History of section H/O colonoscopy S/P cholecystectomy Family History Maternal Grandmother Substance abuse in family Maternal Grandfather Substance abuse in family Daughter Family history of mental disorder Paternal Grandmother Uterine cancer Maternal Uncle Throat cancer Family/Other Brain cancer Social History Housing: House Patient Tobacco Use Status: Former Tobacco user e-Cigarette/Vaping Use: Never Used service: Yes Current occupational status: retired Cognitive needs: No Hearing needs: No Vision needs: Yes (Patient wears reading glasses.) Questionnaire PHQ-9 Over the last 2 weeks, how often have you been bothered by any of the following problems? 1. Little interest or pleasure in doing things: several days 2. Feeling down, depressed, or hopeless: not at all 3. Trouble falling or staying asleep, or sleeping too much: not at all 4. Feeling tired or having little energy: not at all 5. Poor appetite or overeating: several days 6. Feeling bad about yourself - or that you are a failure or have let yourself or your family down: not at all 7. Trouble concentrating on things, such as reading the newspaper or watching television: not at all 8. Moving or speaking so slowly that other people could have noticed. Or the opposite - being so fidgety or restless that you have been moving around a lot more than usual: not at all 9. Thoughts that you would be better off or of hurting yourself in some way: not at all Total score: 2 Depression Screening Interpretation: Negative Depression Screening Done: Yes 78298 - PHQ-9 Billing: Yes Source: Developed by Drs. Brandon Evans, Siria Pack, Wei Jefferson and colleagues, with an educational shayy from [employer]. Thrive Questionnaire Date Thrive assessed: 07/15/23 I am a: Patient What is your living situation today?: I have a steady place to live Within the past 12 months, did the food you bought not last and you didn't have the money to get more?: Never true Within the past 12 months, did you worry whether your food would run out before you got money to buy more?: Never true Do you have trouble paying for medicines?: No Do you have trouble getting transportation to medical appointments?: No Do you have trouble paying your heating and electricity bill?: No Do you have trouble taking care of your child, family member or friend?: No Do you have trouble with day-to-day activities such as bathing, preparing meals, shopping, managing finances, etc.?: No Are you currently unemployed and looking for a job?: No Are you interested in more education?: Yes THRIVE Score: 0 AUDIT C Alcohol Use Questionnaire (AUDIT-C) 1. How often do you have a drink containing alcohol?: Monthly or less 2. How many drinks containing alcohol do you have on a typical day when you are drinking?: 1 or 2 3. How often do you have six or more drinks on one occasion?: Never Total Score: 1 MICAELA-7 AMB Questionnaire MICAELA-7 Date MICAELA - 7 assessed: 08/12/23 Feeling nervous, anxious, or on edge: 0 = Not at all Not being able to stop or control worryin = Not at all Worrying too much about different things: 0 = Not at all Trouble relaxin = Not at all Being so restless that it is hard to sit still: 0 = Not at all Becoming easily annoyed or irritable: 0 = Not at all Feeling afraid as if something awful might happen: 0 = Not at all Total MICAELA-7 score (0-4 normal; 5-9 mild; 10-14 moderate; 15-21 severe): 0 Source: Developed by Drs. Brandon Evans, Siria Pack, Wei Jefferson and colleagues, with an educational shayy from [employer]. MICAELA-7 Assessment Billing MICAELA-7 Assessment Tool: MICAELA-7 Assessment 68985 Review of Systems Const Denies chills, Denies fatigue, Denies fever(s), Denies headache(s) and Denies weakness ENT Denies dizziness and Denies headache(s) Card Denies chest pain, Denies lightheadedness, Denies dyspnea and Denies other (Palpitations) Resp Denies cough, Denies dyspnea, Denies wheezing and Denies other ( shortness of breath) Musc Denies numbness and Denies tingling Neuro Denies dizziness, Denies headache(s), Denies numbness, Denies tingling, Denies paresthesias and Denies weakness Psych Denies anxiety and Denies depression Endo Denies fatigue Aller/Immun Denies wheezing Physical exam (Primary Care) Vital Signs: Last Vital Signs Pulse 60 11/04/23 15:19 BP 128/82 11/04/23 15:19 Pulse Ox 98 11/04/23 15:19 Oxygen Delivery Method Room Air 11/04/23 15:19 BMI result Body Mass Index 24.5 Tobacco/Smoking Status: Tobacco use Status Tobacco use date assessed 08/12/23 11/04/23 15:25 Patient Tobacco Use Status Former Tobacco user 11/04/23 15:25 e-Cigarette/Vaping Use Never Used 11/04/23 15:25 PHQ-9: PHQ-9 Score PHQ-9: Total score 2 11/04/23 15:29 Depression Screening Interpretation: Negative Thrive Assessment: Date of Thrive Assessment Date Thrive assessed 07/15/23 11/04/23 15:25 Const General: no acute distress and well developed Nutritional Appearance: well nourished Orientation/consciousness: patient oriented x3 HENMT Head: Yes normocephalic and Yes atraumatic Eyes General: appearance normal, both eyes and all related structures Pupils: Equal, round and reactive pupils present EOM: EOMs intact bilaterally Resp Effort & Inspection: normal respiratory effort Auscultation: clear to auscultation bilaterally Cardio Rate: regular rate Rhythm: regular rhythm Heart sounds: S1 normal heart sound present, S2 normal heart sound present, no gallops, no murmurs and no rubs Neuro General: patient oriented x3 and gait normal Cranial nerves: Yes Equal, round and reactive pupils present Psych Affect: normal affect Assessment and Plan Assessment & Plan (1) Hypercholesterolemia: Code(s): E78.00 - Pure hypercholesterolemia, unspecified Plan: Patient?had?significantly?elevated?LDL?cholesterol. She?tried?a?keto?diet?and?this?got?worse.??LDL?now?213 Patient?would?like?short?period?longer?to?try?a?different?diet?and?advised?she?work?on?a?diet?low?in?saturated?fats?and?cholesterol?specifically Will?follow-up?in?2?months. We?discussed?that?if?she?is?still?not?able?to?bring?this?down?significantly,?we?should?consider?medication?and?she?seems?amenable?to?trying?this?if?she?is?unable?to?do?this?on?her?own. (2) Diverticulosis: Code(s): K57.90 - Diverticulosis of intestine, part unspecified, without perforation or abscess without bleeding Plan: Patient?received?a?letter?from?her?polysomnography technologist?recommending?a?high-fiber?diet. Also?advised?good?hydration (3) Screening for colon cancer: Code(s): Z12.11 - Encounter for screening for malignant neoplasm of colon Plan: Colonoscopy?revealed?hemorrhoids, diverticulosis?and?also?polyps. She?has?a?follow-up?colonoscopy?in?1?year (4) Lump on neck: Code(s): R22.1 - Localized swelling, mass and lump, neck Plan: Patient?notes?that?lump?on?her?neck?comes?and?goes Ultrasound?was?negative?for?any?mass?in?her?neck She?will?let?me?know?if?this?returns?or?is?changing/worsening?in?any?way Orders: Orders Comprehensive [place]. Panel Fast Today E78.00 - Pure hypercholesterolemia, unspecified, Z00.00 - Encounter for general adult medical examination without abnormal findings Lipid Panel Today E78.00 - Pure hypercholesterolemia, unspecified, Z00.00 - Encounter for general adult medical examination without abnormal findings Coding Level of Care Code Est Pt Level 4 (10564) Diagnoses Hypercholesterolemia E78.00 Diverticulosis K57.90 Screening for colon cancer Z12.11 Lump on neck R22.1 Additional Codes MICAELA-7 Assessment Billing - MICAEAL-7 Assessment Tool: MICAELA-7 Assessment [id number] ([id number])
== END 2023-11-04 15:53 | disposition home or self-care (01) ==
PROVIDERS: PCP Family Medicine; Visit Provider Family Medicine
DX: E78.00 Pure hypercholesterolemia, unspecified (principal); K57.90 Diverticulosis of intestine, part unspecified, without perforation or abscess without bleeding; R22.1 Localized swelling, mass and lump, neck
CPT/HCPCS: 99214

== ENCOUNTER 2023-11-06 16:22 | Outpatient (AMB) | payer OTHER, SELFPAY ==
[2023-11-06 16:24] VITALS: BP 141/67; PULSE 55; BMI 24.1
--- NOTE | 2023-11-06 16:24 | MHC.OFFVIS ---
Vital Signs 11/06/23 16:24 Height 5 ft 5 in Weight 144 lb 9.972 oz BMI 24.1 BP 141/67 H Blood Pressure Location Lt brachial Position Sitting Pulse 55 Intake Visit Reasons: s/p colon Intake Note: Mary Carmen presents to in office follow up s/p colonoscopy. CC: Patient states that she saw the colonoscopy report and has some questions for the provider. She denies having any new symptoms. 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. Apparently she was told she would colon polyps in the request a 3 year follow-up.They said I came in just in time because they were not the good type. We will try to get the colonoscopy and pathology report. She can not drink large volumes and did better with low volume prep even if she has to pay some more OOP. She suffers diarrhea since her tryese, she was unaware of the role of fats and she does keto, but dislikes meds but we discuss options. She declines for now. NO anes or sed problems Mild asthma,no cardiac No ID problems. She had some troubling polyps removed in 2019 unsure the exact pathology trying to get reports. She had a paternal uncle with crc. Assessment & Plan (1) Pre-op examination: Code(s): Z01.818 - Encounter for other preprocedural examination Category: Medical (2) Tubular adenoma of colon: Comment: 2019 scope@ [facility] in [place] with a 3 year follow-up Code(s): D12.6 - Benign neoplasm of colon, unspecified Category: Medical Orders: Orders Colonoscopy - GI Use Only Today Z01.818 - Encounter for other preprocedural examination, Z98.891 - History of uterine scar from previous surgery Medications: New peg 3350-electrolytes 236-22.74-6.74 -5.86 gram (Golytely) until fecal effluent is clear; do not exceed a total volume of 2,000 mL 240 mL PO Q10M 1 day 4,000 mL 0RF Z12.11 - Encounter for screening for malignant neoplasm of colon bisacodyl (Dulcolax (bisacodyl)) 10 mg (2 x 5 mg) PO BEDTIME 2 days 4 tabs 0RF sodium,potassium,mag sulfates 17.5-3.13-1.6 gram (Suprep Bowel Prep Kit) 480 mL orally; FOR COLONOSCOPY PREP 354 mL 0RF COLONOSCOPY 10/11/23 Findings: Terminal Ileum: Not evaluated Cecum: Nodular appearing mucosa in the cecum - random biopsies were obtained Ascending Colon: A 12-15 mm sessile polyp in the distal ascending colon- removed with a stiff hot snare. A 2 to 2.5 cms sessile polyp in the distal AC at 110 cms - removed with a stiff hot snare. Polypectomy site was marked with Chhaya ink. Polyp was retrieved with the Montero net Transverse Colon: Normal Descending Colon: Moderate diverticulosis Sigmoid Colon: Severe diverticulosis with luminal narrowing Rectum: Normal Ano-rectum: Moderate internal hemorrhoids Colon preparation: Good after copious irrigation and fair in the right colon (due to a thin layer of scattered adherent stool which could not be flushed) B Impression and Post Procedure Diagnosis: Colonoscopy Findings: Two medium sized polyps were removed Moderate diverticulosis seen in the left colon Moderate hemorrhoids on retroflexed exam. Plan: Pt has a FU appointment on with 11/06/23, Anne-Marie EDDIE Willis Repeat Colonoscopy in 1-2 years if polyps are adenomatous and due to fair prep in the right colon. BIOPSY Received: 10/11/23 Diagnosis A. Cecum, biopsy: Colonic mucosa with no specific change; no evidence of microscopic colitis. B. Colon, ascending, 2 polyps: Sessile serrated lesion/polyp without dysplasia, and tubular adenoma; negative for high-grade dysplasia and carcinoma. TODAY'S VISIT She is here today with her who is supportive She used the Suprep and she says that she was passing clear water while prepping. She is actually having trouble with diarrhea since her GB was removed, and she was very worried that this was r/t her TICS and a tortuous colon. BUT this is a common problem s/p tyrese and usually can be addressed with a bile binding medication. She really dislikes meds, and asks about diet tx - this leads to the discussion that fats are the worst culprit and she admits she is on keto. Naturally, with a high fat intake of a keto diet she is likely overwhelming her body's ability to digest fat. She is not overweight she dislikes this diet because then she feels like she has more energy and isn't hungry very often. We will try creon as it is a natural analog, and consider going forward. Her cholesterol is also high and she is fearful of going on a statin. (the high fat of the keto probably isn't the best for her cholesterol either). We also discuss fiber as an equalizer. She is agreeable to a 2 year follow up. The procedure was well tolerated. The results were explained and the patient is agreeable to the follow-up interval as stated. The bowel pattern has returned to normal. Education was provided to tell any 1st degree relatives about their findings to be sure that they are screened by age 45. Educated that they will be put on a recall list when it is time for their repeat scope but should they move out of state or away from the hospital they will need to remember along with their primary to repeat the procedure in a timely fashion to avoid any adverse complications. ROV 8 weeks. PFSH Medical History Screening for colon cancer Adult general medical exam Breast cancer screening by mammogram Screening for cervical cancer Hyperlipidemia delivery delivered Colon polyps Surgical History H/O LEEP History of section H/O colonoscopy S/P cholecystectomy Family History Maternal Grandmother Substance abuse in family Maternal Grandfather Substance abuse in family Daughter Family history of mental disorder Paternal Grandmother Uterine cancer Maternal Uncle Throat cancer Family/Other Brain cancer Social History Housing: House Patient Tobacco Use Status: Former Tobacco user e-Cigarette/Vaping Use: Never Used service: Yes Current occupational status: retired Cognitive needs: No Hearing needs: No Vision needs: Yes (Patient wears reading glasses.) Review of Systems Const Denies fatigue, Denies fever(s), Denies night sweats, Denies poor appetite and Denies weight loss ENT Reports Normal hearing present, Denies dental pain, Denies dysphagia, Denies hearing loss, Denies mouth pain, Denies odynophagia, Denies throat swelling, Denies tongue swelling and Reports other (Dentition adequate) Card Reports no additional complaints Resp Reports no additional complaints GI Details: Denies abdominal pain, Denies melena, Denies bloating, Denies hematochezia, Denies constipation, Denies GI cramping, Denies dysphagia, Denies excessive flatus, Denies early satiety, Denies heartburn, Reports diarrhea, Denies nausea, Denies odynophagia, Denies vomiting and Denies hematemesis Skin/Breast Denies pruritus, Denies lesions, Denies rash and Denies jaundice Neuro Reports Normal hearing present and Denies Abnormal speech present Endo Denies fatigue Aller/Immun Denies throat swelling and Denies tongue swelling Physical Exam Vital Signs: Last Vital Signs Pulse 55 11/06/23 16:24 BP 141/67 H 11/06/23 16:24 BMI result Body Mass Index 24.1 Const General: cooperative, no acute distress, well developed and well groomed Nutritional Appearance: well nourished and thin Orientation/consciousness: oriented to person, oriented to place and oriented to time Limitations: No language barrier HEENT Head: Yes normocephalic and Yes atraumatic Eyes General: appearance normal, both eyes and all related structures Pupils: Equal, round and reactive pupils present Neck Neck: Yes normal visual inspection and Yes no lymphadenopathy Thyroid: Thyroid normal Resp Effort & Inspection: normal respiratory effort and able to speak in complete sentences Auscultation: clear to auscultation bilaterally Cardio Rate: regular rate Rhythm: regular rhythm Heart sounds: Normal, physiologic split S2 sound present Peripheral pulses: radial pulses present and posterior tibial pulses present GI Inspection: No distended and No Abdominal panniculus present Palpation (GI): Soft to palpation, nontender, no guarding, not rigid and No hepatosplenomegaly present Percussion: Yes normal to percussion Auscultation: normal bowel sounds Rectal Exam - Female: deferred Skin General skin exam: no rashes or lesions noted, turgor normal, skin not dry, no jaundice, No spider nevi and no striae Rashes: no rashes Nails: normal Neuro General: oriented to person, oriented to place and oriented to time Cranial nerves: Yes Equal, round and reactive pupils present and Yes Normal hearing present Speech: No Abnormal speech present Extrem General: Yes normal to inspection, No clubbing, No cyanosis and No edema Psych Appearance: grossly normal and well kempt Mental Status: mental status grossly normal Speech and movement: Normal speech and movement present Affect: normal affect Attitude: cooperative Thought process: Normal thought process present and not confabulating Thought content: Normal thought content present Insight: Fair insight present (Psych) and Limited insight present (Psych) Judgement: Fair judgement present (Psych) and Limited judgement present (Psych) Results Reviewed Results Reviewed: COLONOSCOPY 10/11/23 Findings: Terminal Ileum: Not evaluated Cecum: Nodular appearing mucosa in the cecum - random biopsies were obtained Ascending Colon: A 12-15 mm sessile polyp in the distal ascending colon- removed with a stiff hot snare. A 2 to 2.5 cms sessile polyp in the distal AC at 110 cms - removed with a stiff hot snare. Polypectomy site was marked with Chhaya ink. Polyp was retrieved with the Montero net Transverse Colon: Normal Descending Colon: Moderate diverticulosis Sigmoid Colon: Severe diverticulosis with luminal narrowing Rectum: Normal Ano-rectum: Moderate internal hemorrhoids Colon preparation: Good after copious irrigation and fair in the right colon (due to a thin layer of scattered adherent stool which could not be flushed) B Impression and Post Procedure Diagnosis: Colonoscopy Findings: Two medium sized polyps were removed Moderate diverticulosis seen in the left colon Moderate hemorrhoids on retroflexed exam. Plan: Pt has a FU appointment on with 11/06/23, Anne-Marie Willis NP Repeat Colonoscopy in 1-2 years if polyps are adenomatous and due to fair prep in the right colon. BIOPSY Received: 10/11/23 Diagnosis A. Cecum, biopsy: Colonic mucosa with no specific change; no evidence of microscopic colitis. B. Colon, ascending, 2 polyps: Sessile serrated lesion/polyp without dysplasia, and tubular adenoma; negative for high-grade dysplasia and carcinoma. 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 She is actually having trouble with diarrhea since her GB was removed, and she was very worried that this was r/t her TICS and a tortuous colon. BUT this is a common problem s/p tyrese and usually can be addressed with a bile binding medication. She really dislikes meds, and asks about diet tx - this leads to the discussion that fats are the worst culprit and she admits she is on keto. Naturally, with a high fat intake of a keto diet she is likely overwhelming her body's ability to digest fat. She is not overweight she dislikes this diet because then she feels like she has more energy and isn't hungry very often. We will try creon as it is a natural analog, and consider going forward. Her cholesterol is also high and she is fearful of going on a statin. (the high fat of the keto probably isn't the best for her cholesterol either). We also discuss fiber as an equalizer. She is agreeable to a 2 year follow up. The procedure was well tolerated. The results were explained and the patient is agreeable to the follow-up interval as stated. The bowel pattern has returned to normal. Education was provided to tell any 1st degree relatives about their findings to be sure that they are screened by age 45. Educated that they will be put on a recall list when it is time for their repeat scope but should they move out of state or away from the hospital they will need to remember along with their primary to repeat the procedure in a timely fashion to avoid any adverse complications. ROV 8 weeks. Medications: New vipoey-vdlslxhl-caghrev 24,000-76,000 -120,000 unit (Creon) 2 caps PO BID 30 days 120 caps 6RF K58.9 - Irritable bowel syndrome without diarrhea Coding Level of Care Code Est Pt Level 4 (37603) Diagnoses Tubular adenoma of colon D12.6 Post-cholecystectomy syndrome K91.5 Time Spent (min) 38
== END 2023-11-07 10:43 | disposition home or self-care (01) ==
PROVIDERS: PCP Family Medicine; Visit Provider Nurse Practitioner
DX: D12.6 Benign neoplasm of colon, unspecified (principal); K91.5 Postcholecystectomy syndrome
CPT/HCPCS: 99214

== ENCOUNTER → 2023-11-06 16:22 | Outpatient (BNVA) | payer OTHER, SELFPAY | PROVIDERS: PCP Family Medicine; Visit Provider Nurse Practitioner | DX: D12.6 Benign neoplasm of colon, unspecified (principal); K91.5 Postcholecystectomy syndrome | CPT/HCPCS: 99212 ==

== ENCOUNTER 2024-09-10 07:50 | Outpatient (REF) | payer MEDICARE, SELFPAY ==
--- OUTSIDE RECORDS SUMMARY | 2024-09-10 07:54 | XMS_ITS | Clinical Summary ---
Author Organization [facility] Address [address] [place] [address] Care Team Providers Care Product Builder Name Role Phone Osiel Lynch MD Primary Care Provider [phone] Allergies Active Allergy Reactions Criticality Noted Date Comments Codeine Hives Medium 12/03/2019 Medications No known medications Active Problems Problem Noted Date Diagnosed Date Heme + stool 11/24/2019 Overview: Added automatically from request for surgery [id number] Social History Tobacco Use Types Packs/Day Years Used Date Smoking Tobacco: Never Smokeless Tobacco: Never Alcohol Use Standard Drinks/Week Comments Yes 0 (1 standard drink = 0.6 oz pur e alcohol) socially Sex and Gender Information Value Date Recorded Sex Assigned at Female 12/01/2019 2:24 PM EDT Gender Identity Not on file Sexual Orientation Not on file Last Filed Vital Signs Vital Sign Reading Time Taken Comments Blood Pressure 118/64 12/04/2019 9:05 AM EDT Pulse 50 12/04/2019 9:05 AM EDT Temperature 36.4 ??C (97.6 ??F) 12/04/2019 7:56 AM ED T Respiratory Rate 20 12/04/2019 9:05 AM EDT Oxygen Saturation 99% 12/04/2019 9:05 AM EDT Inhaled Oxygen Concentration - - Weight 74.8 kg (165 lb) 12/03/2019 11:32 AM EDT Height 165.1 cm (5' 5 ) 12/03/2019 11:32 AM EDT Body Mass Index 27.46 12/03/2019 11:32 AM EDT Plan of Treatment Health Maintenance Due Date Last Done Comments Hepatitis C Screening 1960 COVID-19 Vaccine (#1) 1959 Depression Screening 1971 BMI Counseling 1977 Preventative Health Evaluation 1977 DTap / Tdap / Td (1 - Tdap) 1978 Cervical Cancer Screening (P ap Smear) 1980 Breast Cancer Screening (Mammogram) 2009 Shingrix-Zoster Vaccine (1 of 2) 2009 Fall Risk Assessment 2024 Osteoporosis Screening (DEXA Scan) 2024 Pneumococcal Vaccine (1 of 1 - PCV) 2024 Influenza Vaccine (Season Ended) 2024 Colon Cancer Screening (Colonoscopy) 12/03/2029 12/04/2019 RSV Adult > 60+ Yrs or Pregn ant (1 - 1-dose 75+ series) 2034 Hepatitis B Vaccines Aged Out No long er eligible based on patient's age to complete this topic Pneumococcal Vaccine Aged Out No long er eligible based on patient's age to complete this topic RSV Ped < 20 months Aged Out No longe r eligible based on patient's age to complete this topic Advance Directives For more information, please contact: [phone] Latest Code Status on File Code Status Date Activated Date Inactivated Comments Full Code 12/04/2019 8:41 AM 12/04/2019 3:44 PM This code status was ascertained in the following way: discussion with patient . Care Teams Product Builder Relationship Specialty Start Date End Date Osiel Lynch MD [address] [address] PCP - General Animal Assistant 11/19/19
[2024-09-10 11:24] LABS: Appearance Urine Clear; Color Urine Yellow; Glucose Urine UA Negative (Negative); Leukocyte Esterase Urine Trace (Negative); Nitrite Urine Negative (Negative); PH 5.5 (5.0-9.0); UMIC TRIGGER UA YES; Urine Blood Negative (Negative); Urine Ketones 15 mg/dL (Negative); Urine Protein Negative (Neg-Trace)
[2024-09-10 11:38] LABS: Bacteria Urine Trace (None Seen); Hyaline Casts Urine 0-2 /LPF (0-2); RBC Urine 0-2 /HPF (0-2); Squamous Epithelial Cell Urine 0-2 /HPF (0-2); WBC Urine 0-5 /HPF (0-5)
[2024-09-10 12:28] LABS: Alanine Aminotransferase 48 U/L (0-31); Albumin Level 4.7 g/dL (3.5-5.0); Alkaline Phosphatase 82 U/L (39-117); Anion Gap 12 (12-20); Aspartate Amino Transferase 37 U/L (5-31); Bilirubin Total 0.7 mg/dL (0.0-1.0); Blood Urea Nitrogen 17 mg/dL (9-16); Calcium 9.8 mg/dL (8.4-10.2); Carbon Dioxide 27 mmol/L (22-29); Chloride 103 mmol/L (96-108); Cholesterol 334 mg/dL (<200); Estimated Glomerular Filt Rate > 60; Glucose Fasting 102 mg/dL (60-99); HDL Cholesterol 59 mg/dL (>40); LDL Cholesterol Calculated 247 mg/dL (<100); Sodium 138 mmol/L (135-145); Total Protein 7.4 g/dL (6.5-8.0); Triglycerides 141 mg/dL (<150)
== END 2024-09-10 07:51 | disposition home or self-care (01) ==
LOC: HO.WFDLDS 07:50
PROVIDERS: Visit Provider Family Medicine
DX: Z00.00 Encounter for general adult medical examination without abnormal findings (principal); E78.00 Pure hypercholesterolemia, unspecified
CPT/HCPCS: 36415; 80053; 80061; 81001

== ENCOUNTER 2024-11-20 11:10 | Day surgery (SDC) | payer MEDICARE, SELFPAY ==
--- OUTSIDE RECORDS SUMMARY | 2023-04-16 19:41 | XMS_ITS | Encounter Summary ---
Author Organization [facility] Address [address] [place] [address] Care Team Providers Care Production Support Engineer Name Role Phone System, Provider Not In Primary Care Provider Un available Encounter Details Date Type Department Care Team (Late st Contact Info) Description 04/16/2023 6:41 PM EST Hospital Encounter [facility] [address] [place] [phone] Hernando Beasley MD [address] [place] [phone] Social History Tobacco Use Types Packs/Day Years [...] Significant finding has been communicated to Radiology Shield Runner for provider notification via the [employer] Actionable Findings Application on 04/16/2023 6:56 PM, Message ID [id number]. Narrative 04/16/2023 6:56 PM EST XR FOOT [...] Significant finding has been communicated to Radiology Shield Runner forprovider notification via the [employer] Actionable FindingsApplication on 04/16/2023 6:56 PM, Message ID [id number]. Luis Morales PA-C [facility] ORDER LISA Final Result documented in this encounter Visit Diagnoses Not on filedocumented in this encounter Care Teams Production Support Engineer Relationship Specialty Start Date End Date System, Provider Not In PCP - General 04/16/23 documented as of this encounter
--- OUTSIDE RECORDS SUMMARY | 2024-10-19 14:52 | XMS_ITS ---
Author Name [facility] Organization Unknown History of Medication Use Medication Directions Dispensed Refills Start Date End Date Stat us cycloSPORINE (RESTASIS) 0.05 % ophthalmic emulsion Administer 1 drop to both eyes twice daily (every 12 hours). 04/28/2024 active Olopatadine HCl (PATADAY) 0.2 % Solution ophthalmic solution Administer 1 drop to both eyes daily. 04/28/2024 active estradiol (ESTRACE) 0.01 % vaginal cream USE 1/2 GRAM VAGINALLY NIGHTLY FOR 2 WEEK, THEN USE 1/2 GRAM VAGINALLY TWICE A WEEK 04/23/2024 active sertraline (ZOLOFT) 100 MG tablet Take 100 mg by mouth. 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 [email or web address] 04/28/2024 Ambulatory Displaced unspecified fracture of left great toe, initial encounter for closed fracture Displaced unspecified fracture of left great toe, initial encounter for closed fracture [email or web address] 04/18/2023 Ambulatory [email or web address] 04/16/2023 Ambulatory Unspecified injury of left foot, initial encounter Unspecified injury of left foot, initial encounter [email or web address] 04/16/2023 Care Team Organization Name Specialty Phone Email Start Date End Da te [email or web address] 04/28/2023 [email or web address] 04/28/2023 06/24/2024 [email or web address] System,Provider Primary Care 04/17/20232024 [email or web address] PROVIDER SYSTEM Primary Care 04/16/20232023
--- OUTSIDE RECORDS SUMMARY | 2024-10-19 14:52 | XMS_ITS | Clinical Summary ---
Author Organization [facility] Address [address] [place] [address] Care Team Providers Care Jacquard Loom Weaver Name Role Phone Osiel Lynch MD Primary Care Provider [phone] Allergies Active Allergy Reactions Criticality Noted Date Comments Codeine Hives Medium 12/03/2019 Medications No known medications Active Problems Problem Noted Date Diagnosed Date Heme + stool 11/24/2019 Overview: Added automatically from request for surgery [id number] Social History Tobacco Use Types Packs/Day Years [...] 49 12/04/2019 9:05 AM EDT Temperature 36.4 C (97.6 F) 12/04/2019 7:56 AM EDT Respiratory Rate 20 12/04/2019 9:05 AM EDT [...] of 1 - PCV) 2024 Influenza Vaccine (#1) 2024 Colon Cancer Screening (Colonoscopy) 12/03/2029 12/04/2019 [...] Advance Directives For more information, please contact: [phone] Latest Code Status on File Code Status Date Activated Date Inactivated Comments Full Code 12/04/2019 8:41 AM 12/04/2019 3:44 PM This code status was ascertained in the following way: discussion with patient . Care Teams Jacquard Loom Weaver Relationship Specialty Start Date End Date Osiel Lynch MD [address] [address] PCP - [employer] Ax Consultant 11/19/19
--- OUTSIDE RECORDS SUMMARY | 2024-10-19 14:53 | XMS_ITS | Clinical Summary ---
Author Organization [facility] Address [address] [place] [address] Care Team Providers Care Valve Steamer Name Role Phone Jeremy Kent Primary Care Provider [phone] Surgical History Surgery Date Site/Laterality Comments SECTION PROCEDURE: IN DELIVERY ONLY CHOLECYSTECTOMY PROCEDURE: IN LAPAROSCOPY SURG CHOLECYSTECTOMY Medical History Medical History Date Comments Asthma DX:Asthma Family History Medical History Relation Name Comments Breast cancer Neg Hx Cancer of Small Bowel Neg Hx Colon cancer Neg Hx Kidney cancer Neg Hx Ovarian cancer Neg Hx Pancreatic cancer Neg Hx Uterine cancer Neg Hx Social History Tobacco Use Types Packs/Day Years Used Date Smoking Tobacco: Never Smokeless Tobacco: Never Alcohol Use Standard Drinks/Week Comments Yes 0 (1 standard drink = 0.6 oz pur e alcohol) Comments Unknown Sex and Gender Information Value Date Recorded Sex Assigned at Not on file Legal Sex Female 4:01 PM EST Gender Identity Not on file Sexual Orientation Not on file Obstetrics History Last Filed Vital Signs Vital Sign Reading Time Taken Comments Blood Pressure 102/60 08/07/2023 10:36 AM EDT Pulse 62 08/07/2023 10:36 AM EDT Temperature - - Respiratory Rate - - Oxygen Saturation - - Inhaled Oxygen Concentration - - Weight 65.8 kg (145 lb) 08/07/2023 10:36 AM EDT Height 165.1 cm (5' 5 ) 08/07/2023 10:36 AM EDT Body Mass Index 24.13 08/07/2023 10:36 AM EDT Plan of Treatment Upcoming Encounters Date Type Department Care Team ([facility] st Contact Info) Description 01/01/2025 3:30 PM EDT Appointment Radiology Department [address] [phone] Health Maintenance Due Date Last Done Comments DTaP,Tdap,and Td Vaccines (1 - Tdap) 1978 Pneumococcal Vaccine: 50+ Years (1 of 1 - PCV) 2009 Zoster Vaccines (1 of 2) 2009 Colorectal Cancer Screening: Colonoscopy 10/29/2023 Depression Screening 10/29/2023 Hepatitis C Screening 10/29/2023 Osteoporosis Screening (Bone Density Screening) 10/29/2023 Social Influencers of Health Screening 10/29/2023 COVID-19 Vaccine (1 - 2023-2 5 season) 2023 Falls Risk Assessment 2024 Influenza Vaccine (#1) 2024 Breast Cancer Screening 12/23/2025 12/24/19 24, 12/24/2023 Cervical Cancer Screening: P ap Smear 08/06/2026 08/07/2023 RSV Immunization Adult Patients (1 - 1-dose 75+ series) 2034 HIB Vaccines Aged Out No longer eligi ble based on patient's age to complete this topic HPV Vaccines Aged Out No longer eligi ble based on patient's age to complete this topic Hepatitis A Vaccines Aged Out No long er eligible based on patient's age to complete this topic Hepatitis B Vaccines Aged Out No long er eligible based on patient's age to complete this topic IPV Vaccines Aged Out No longer eligi ble based on patient's age to complete this topic MMR Vaccines Aged Out No longer eligi ble based on patient's age to complete this topic Meningococcal ACWY Vaccine Aged Out N o longer eligible based on patient's age to complete this topic Meningococcal B Vaccine Aged Out No l onger eligible based on patient's age to complete this topic RSV Immunization Patients Under 20 months Aged Out No longer eligible b ased on patient's age to complete this topic Varicella Vaccines Aged Out No longer eligible based on patient's age to complete this topic Procedures Procedure Name Priority Date/Time Associated Diagnosis Comments SCREENING MAMMOGRAPHY BI 2-VIEW BREAST INC CAD Routine 12/24/2023 3:03 PM EDT Encounter for screening mammogram for malignant neoplasm of breast PAP SMEAR Routine 08/07/2023 from Last 3 Months or Most Recently Relevant to Health Maintenance Results * SCREENING MAMMOGRAPHY BI 2-VIEW BREAST INC CAD (12/24/2023 3:03 PM EDT) Anatomical Region Laterality Modality Radiographic Mercedes ging 08/12/2023 2:39 PM EDT Narrative 12/24/2023 4:07 PM EDT This is a summary report. The complete report is available in the patient's medical record. If you cannot access the medical record, please contact the sending organization for a detailed fax or copy. Full field digital screening tomosynthesis mammography, reviewed with CAD and compared to previous mammogram of 12/18/2019. The breast tissue is heterogeneously dense, limiting sensitivity. No suspicious mass, architectural distortion or suspicious calcifications are identified. IMPRESSION: : Dense breast tissue, limiting the sensitivity of mammography. No mammographic evidence of malignancy. BIRADS 1-Negative; N. Breast density: The breasts are heterogeneously dense, which may obscure small masses. 5 year breast cancer risk assessment 1.3 % Lifetime breast cancer risk assessment 5.3 % Breast cancer risk category Low (<15%) Location: [facility], [address] [place] [address], [id number], [phone] Procedure Note Fiordaliza Aguiar MD - 01/22/2024 This is a summary report. The complete report is available in thepatient's medical record. If you cannot access the medical record, pleasecontact the sending organization for a detailed fax or copy. Full field digital screening tomosynthesis mammography, reviewed with CADand compared to previous mammogram of 12/18/2019. The breast tissue isheterogeneously dense, limiting sensitivity. No suspicious mass,architectural distortion or suspicious calcifications are identified. IMPRESSION: : Dense breast tissue, limiting the sensitivity of mammography. Nomammographic evidence of malignancy. BIRADS 1-Negative; N. Breast density: The breasts are heterogeneously dense, which may obscuresmall masses. 5 year breast cancer risk assessment 1.3 % Lifetime breast cancer risk assessment 5.3 % Breast cancer risk category Low (<15%) Location: [facility], [address] [place] [address], [address], [phone] us Larisa Carrera CNM IMG XR PROCEDURES Final Res ult * Pap smear (08/07/2023) 08/07/2023 Narrative HISTORICAL TESTING LAB RESULTING AGENCY - 08/14/2023 1:40 PM EDT [id number] THINPREP PAP, IMAGED: NEGATIVE FOR SQUAMOUS INTRAEPITHELIAL LESION AND MALIGNANCY ANGELA LUQUE , CT(ASCP) (CASE ELECTRONICALLY SIGNED 08 14 2023) RESULT OF APTIMA HIGH RISK HPV ASSAY: HIGH RISK HPV: NEGATIVE (SEROTYPES 16,18,31,33,35,39,45,51,52,56,58,59,66,68) COMPLETED ON 2023-08-12 ADEQUACY: SATISFACTORY ENDOCERVICAL/TRANSFORMATION ZONE COMPONENT PRESENT. SOURCE: THINPREP PAP HPV ANY DX: REFLEX 16 AND 18, CERVICAL, IMAGED CLINICAL INFORMATION: HPV ANY DIAGNOSIS. [Z01.419] Larisa SUAZO LAB CYTOLOGY ORDERABLES Fin al Result HISTORICAL TESTING LAB RESULTING AGENCY from Last 3 Months or Most Recently Relevant to Health Maintenance Care Teams Valve Steamer Relationship Specialty Start Date End Date Jeremy Kent PA PCP - General 05/09/23
[2024-11-18 13:00] VITALS: BMI 24.1
--- NOTE | 2024-11-19 10:23 | HO.ANESPROP2 ---
Documented by User: Vanessa Warner NP 11/19/24 10:23 HPI - Anesthesia Eval Consult details Narrative: 64yo F for Colonoscopy PMFSH Active Problems Active Problems: All Active Problems Post-cholecystectomy syndrome (Acute) Diverticulosis (Acute) Tubular adenoma of colon (Acute) Pre-op examination (Acute) Lump on neck (Acute) Bacteria in urine (Acute) Hypercholesterolemia (Acute) Rash (Acute) Right wrist pain (Acute) Screening for colon cancer (Acute) Anxiety and depression (Acute) Past Medical History Medical History Hypercholesteremia Diverticulosis delivery delivered Colon polyps Family History Family History Maternal Grandmother Substance abuse in family Maternal Grandfather Substance abuse in family Daughter Family history of mental disorder Paternal Grandmother Uterine cancer Maternal Uncle Throat cancer Family/Other Brain cancer Family history of problems with anesthesia: No Surgical History Surgical History H/O LEEP History of section H/O colonoscopy S/P cholecystectomy History of Problems with Anesthesia: No Social History Social History Housing: House Patient Tobacco Use Status: Former Tobacco user e-Cigarette/Vaping Use: Never Used Use of substances other than those prescribed or required for medical reasons: No Are you DNR?: No Advance Directives: No Advance Directives Information Provided: Yes Patient : No : No Poor oral hygiene: No service: Yes Current occupational status: retired Cognitive needs: No Hearing needs: No Vision needs: Yes (Patient wears reading glasses.) Meds Allergies Allergy/AdvReac Type Severity Reaction Status Date / Time codeine AdvReac Mild hives, Verified 11/06/23 16:30 itching Exam Height,Weight and Vital Signs: Height 5 ft 5 in Weight 65.771 kg Assessment and Plan Assessment Anesthesia Assessment: Chart Reviewed Final Anesthetic Review Family History of Problems with Anesthesia: No History of Problems with Anesthesia: No Documented by User: Radha Dorman MD 11/20/24 13:27 PMFSH Past Medical History Medical History Hypercholesteremia Diverticulosis delivery delivered Colon polyps Family History Family History Maternal Grandmother Substance abuse in family Maternal Grandfather Substance abuse in family Daughter Family history of mental disorder Paternal Grandmother Uterine cancer Maternal Uncle Throat cancer Family/Other Brain cancer Surgical History Surgical History H/O LEEP History of section H/O colonoscopy S/P cholecystectomy Social History Social History Housing: House Patient Tobacco Use Status: Former Tobacco user e-Cigarette/Vaping Use: Never Used Use of substances other than those prescribed or required for medical reasons: No Are you DNR?: No Advance Directives: No Advance Directives Information Provided: Yes Patient : No : No Poor oral hygiene: No service: Yes Current occupational status: retired Cognitive needs: No Hearing needs: No Vision needs: Yes (Patient wears reading glasses.) Meds Allergies Allergy/AdvReac Type Severity Reaction Status Date / Time codeine AdvReac Mild hives, Verified 11/06/23 16:30 itching Exam Airway Mallampati Class: II TM Dist: >3cm Neck ROM: Full Loose/Missing/Broken Teeth: No Heart: RRR Lungs: CTA Assessment and Plan Final Anesthetic Review NPO: Yes ASA Class: II and III Final Preanesthetic Review: Meds/Allgs Chart Reviewed, Consent Obtained/Reviewed and Anes Risks/Benef Reviewed Patient Risk: Low Procedure Risk: Low Anesthetic Plan Anesthetic Plan: MAC: Disposition: Standard PACU
[2024-11-20 11:56] VITALS: BMI 29.3
[2024-11-20 11:58] VITALS: BP 168/60; PULSE 64; RESP 16; TEMP 37.1; O2SAT 95
[2024-11-20] MEDS: Lactated Ringers 1,000 ML 100 ML IVCONT (12:13)
--- NOTE | 2024-11-20 12:33 | P.HPSUR_ITS ---
Pre-Procedural Eval Section A - 24 Hr Update-Section A only Date of Service: 11/20/24 The patient is an INPATIENT: No The patient has been examined within 24 hours of the surgical procedure. The History & Physical has been completed within 30 days and I have reviewed it.: No Section B - Complete if H&P > 30 days Chief Complaint: Surveillance for colon polyps Relevant Family History (Specify if Yes): No Relevant Social History: Tobacco Use (Former smoker) Present Medications: see Short Stay Collaborative assessment Medical History: Significant History (Hyperlipidemia delivery delivered Colon polyps) History of Previous Operations: Relevant previous surgery/procedure and date(s) (H/O LEEP History of section H/O colonoscopy S/P cholecystectomy) Allergies: Allergies Allergy/AdvReac Type Severity Reaction Status Date / Time codeine AdvReac Mild hives, Verified 11/06/23 16:30 itching Review of Systems Sugical H&P ROS: Negative: Constitution, Cardiovascular, Respiratory and Gastroi ntestinal Exam Surgical H&P Exam: Normal: Heart, Normal: Lungs, Normal: Extremities and Normal: Abdomen Plan Diagnosis/Plan: Unchanged I have reviewed the history and physical and performed a pertinent physical examination on my patient. No changes have occurred unless specified. Time Spent With Patient Time: Total time managing care of this patient today ____ minutes.
[2024-11-20 14:40] VITALS: BP 103/51; PULSE 61; RESP 18; TEMP 36.3; O2SAT 100
--- NOTE | 2024-11-20 14:49 | P.OPN-COLO_ITS ---
Colonoscopy Operative Note Operative Note Date of Service: 11/20/24 Narrative: COLONOSCOPY TILL CECUM WITH BIOPSIES, SNARE POLYPECTOMY, SUBMUCOSAL INJECTION AND HEMOCLIP PLACEMENT Pre-op diagnosis: Surveillance for colon polyps. Post-op diagnosis:? Colon polyps, Diverticulosis, hemorrhoids Endoscopist:? Dhaval Durbin MD Anesthesia:?MAC Consent: Indications for the procedure and potential complications of bleeding, perforation, reaction to medications and missed diagnosis were discussed with the patient and informed consent was obtained. Instrument: Olympus PCF H 190 L variable stiffness pediatric colonoscope Monitoring: Vital signs and clinical assessment, intermittent blood pressure monitoring, continuous EKG monitoring, Pulse oximetry and Carbon Dioxide monitoring were done throughout the procedure. Please see anesthesia flowsheet. Colon withdrawl time was 35 minutes. Procedure: The patient was placed in the left lateral decubitis position and pre-procedure medications were administered. After a digital rectal examination of the ano-rectum, the video colonoscope was inserted into the rectum and advanced through the colon to the cecum. The colonoscope was slowly withdrawn in a retrograde panoramic fashion and the colon mucosa was carefully examined including a retroflexed view of the rectum. Findings and interventions are described below. Procedure Difficulty: Colon was redundant, long and tortuous and there was some loop formation. There was narrowing in the sigmoid colon due to severe diverticulosis which was navigated with some difficulty Findings: Terminal Ileum: Not evaluated Cecum: Normal Ascending Colon: A 2 cms sessile polyp in the ascending colon at 70 cms. Polyp was raised with 4 cc of Eleview and removed with a stiff hot snare. Polypectomy site was closed with 1 hemoclip and marked with Chhaya ink Past polypectomy site visualized at 65 cms without recurrent/residual adenomatous tissue. Edematous folds noted at polypectomy site which were biopsied. Transverse Colon: A 12-15 mm sessile polyp - removed with a hot snare. A 2-3 mm sessile polyp - removed with a cold biopsy Descending Colon: Moderate diverticulosis Sigmoid Colon: Severe diverticulosis with luminal narrowing Rectum: A 7-8 mm sessile polyp - removed with a hot snare. Ano-rectum: Moderate internal hemorrhoids Colon preparation: Good after copious irrigation. [place] Bowel Preparation Scale Right colon; 2 Transverse colon: 2 Left colon; 2 (0 = Unprepared colon segment with mucosa not seen due to solid stool that cannot be cleared. 1 = Portion of mucosa of the colon segment seen, but other areas of the colon segment not well seen due to staining, residual stool and/or opaque liquid. 2 = Minor amount of residual staining, small fragments of stool and/or opaque liquid, but mucosa of colon segment seen well. 3 = Entire mucosa of colon segment seen well with no residual staining, small fragments of stool or opaque liquid) Impression and Post Procedure Diagnosis: Colonoscopy Findings: Four small to medium sized polyps were removed Moderate to severe diverticulosis seen in the left colon Moderate hemorrhoids on retroflexed exam. Plan: I will send a letter with biopsy results. Repeat Colonoscopy in 2-3 years if polyps are adenomatous and due to a history of adenomatous colon polyps. Above findings were reviewed with the patient and relevant handouts were given and the discharge area. BIOPSIES SHOWED: A. Colon, ascending, polyp: Tubular adenoma (multiple pieces); negative for high-grade dysplasia and carcinoma. B. Colon, at 65 cm, polyp: Colonic mucosa with no specific change on initial levels (see comment). C. Colon, transverse, polyps: Tubular adenoma (1 piece); negative for high-grade dysplasia and carcinoma, and sessile serrated lesion/polyp without dysplasia (1 piece). D. Colon, rectal polyp: Tubular adenoma; negative for high-grade dysplasia and carcinoma Letter sent to the patient with biopsy results. Pt was placed on the colonoscopy recall list for repeat colon in 2 years.
[2024-11-20 14:55] VITALS: BP 112/57; PULSE 80; RESP 18; TEMP 36.4; O2SAT 100
== END 2024-11-20 15:17 | disposition home or self-care (01) ==
PROVIDERS: PCP Family Medicine; Visit Provider Internal Medicine Gastroenterology
PROC: 0DJD8ZZ Inspection of Lower Intestinal Tract, Via Natural or Artificial Opening Endoscopic (ICD-10-PCS; CPT 45378; principal; 2024-11-20 12:50)
DX: Z12.11 Encounter for screening for malignant neoplasm of colon (principal); D12.2 Benign neoplasm of ascending colon; D12.3 Benign neoplasm of transverse colon; K56.2 Volvulus; K57.30 Diverticulosis of large intestine without perforation or abscess without bleeding; K64.8 Other hemorrhoids; Z86.0101 Personal history of adenomatous and serrated colon polyps; E78.5 Hyperlipidemia, unspecified
CPT/HCPCS: 45385; 45380; 45381; 88305; J1596; J2405; J2704

== ENCOUNTER 2025-01-11 14:41 | Outpatient (AMB) | payer MEDICARE, SELFPAY ==
--- OUTSIDE RECORDS SUMMARY | 2023-04-16 19:41 | XMS_ITS | Encounter Summary ---
Author Organization [facility] Address [address] [place] [address] Care Team Providers Care Dairy Truck Driver Name Role Phone System, Provider Not In Primary Care Provider Un available Encounter Details Date Type Department Care Team (Late st Contact Info) Description 04/16/2023 6:41 PM EST Hospital Encounter [facility] [address] [place] [phone] Hernando Beasley MD [address] [place] [phone] Social History Tobacco Use Types Packs/Day Years Used Date Smoking Tobacco: Never Smokeless Tobacco: Never Alcohol Use Standard Drinks/Week Comments Not Currently 0 (1 standard drink = 0.6 oz pur e alcohol) Comments Unknown Sex and Gender Information Value Date Recorded Sex Assigned at Not on file Legal Sex Female 6:18 PM EST Gender Identity Not on file Sexual Orientation Not on file documented as of this encounter Plan of Treatment Not on file documented as of this encounter Procedures Procedure Name Priority Date/Time Associated Diagnosis Comments XR FOOT 3+ VIEWS-LEFT STAT 04/16/2023 6:47 PM EST Foot injury, left, initial encounter documented in this encounter Results * XR Foot 3+ views-Left (04/16/2023 6:47 PM EST) Anatomical Region Laterality Modality Foot Left Computed Radiogr aphy 04/16/2023 6:55 PM EST Impressions 04/16/2023 6:56 PM EST Impression: Nondisplaced fracture involving the distal aspect of the first proximal phalanx Possible additional fracture noted at the base of the first distal phalanx. A Significant finding has been communicated to Radiology Facing Slitter for provider notification via the [employer] Actionable Findings Application on 04/16/2023 6:56 PM, Message ID [id number]. Narrative 04/16/2023 6:56 PM EST XR FOOT 3+ VIEWS-LEFT: 04/16/2023 6:41 PM CLINICAL HISTORY: Slip and fall on ice roughly 45 minutes prior to arrival. Pain distal first metatarsal/proximal phalanx of the great toe Comparisons: None available. Technique: Frontal, lateral and oblique views Findings: There is a nondisplaced fracture involving the distal aspect of the first proximal phalanx, with intra-articular extension. There is a possible additional nondisplaced fracture involving the base of the first distal phalanx. There is no further evidence for fracture. There is no dislocation. Procedure Note Brandon Antonio MD - 04/16/2023 XR FOOT 3+ VIEWS-LEFT: 04/16/2023 6:41 PM CLINICAL HISTORY: Slip and fall on ice roughly 45 minutes prior to arrival. Pain distalfirst metatarsal/proximal phalanx of the great toe Comparisons: None available. Technique: Frontal, lateral and oblique views Findings: There is a nondisplaced fracture involving the distal aspect of the firstproximal phalanx, with intra-articular extension. There is a possibleadditional nondisplaced fracture involving the base of the first distalphalanx. There is no further evidence for fracture. There is no dislocation. IMPRESSION: Impression: Nondisplaced fracture involving the distal aspect of the first proximalphalanx Possible additional fracture noted at the base of the first distalphalanx. A Significant finding has been communicated to Radiology Facing Slitter forprovider notification via the [employer] Actionable FindingsApplication on 04/16/2023 6:56 PM, Message ID [id number]. Luis Morales PA-C [facility] ORDER [facility]ISA Final Result documented in this encounter Visit Diagnoses Not on filedocumented in this encounter Care Teams Dairy Truck Driver Relationship Specialty Start Date End Date System, Provider Not In PCP - General 04/16/23 documented as of this encounter
[2025-01-11 14:54] VITALS: BP 122/76; PULSE 73; RESP 14; TEMP 37.3; O2SAT 96; BMI 30.3
--- NOTE | 2025-01-11 14:54 | A.OFFPC_ITS ---
Vital Signs 01/11/25 14:54 Height 5 ft 5 in Weight 182 lb BMI 30.3 BP 122/76 Blood Pressure Location Rt brachial Position Sitting Respiration 14 Pulse 73 Pulse Source Pulse Oximeter Temp 99.1 F Temp Source Oral Pulse Oximetry (%) 96 Oxygen Delivery Method Room Air Intake Visit Reasons: follow-up hyperlipidemia,-2x resched Intake Note: Follow up Poultry Veterinarian Required: No Allergies codeine Adverse Reaction (Mild, Verified 01/11/25 14:56) hives, itching Medication List - Last Reconciled 01/11/25 by Jovanny Rich MD sertraline (Zoloft) 100 mg PO DAILY 90 days [tirzapide .] Tobacco use date assessed: 01/11/25 Fall risk assessment: No Falls in past year Last assessed Fall Risk: 01/11/25 Dental Screening Dental Screen Date: 01/11/25 Did you have a dental visit in the last 12 months?: No Did you have a dental problem in the last 6 months where you did not have access to dental care?: No Was dental information given to patient?: Patient has dentist HPI follow-up hyperlipidemia,-2x resched HPI Details 64 y/o female presents to f/u HLD. No recent labs to review for her lipids. She had not been able to make any significant lifestyle changes. Mild anxiety/depression. HPI Comments History of Present Illness Details Documentation assistance for Jovanny Rich MD, was provided by Basil Daniel,? Insulation Manager on 01/11/2025 at 3:28 PM EST. I, Dr. Rich, have read, observed, and verified documentation. ? PFSH Medical History Hypercholesteremia Diverticulosis delivery delivered Colon polyps Surgical History H/O LEEP History of section H/O colonoscopy S/P cholecystectomy Family History Maternal Grandmother Substance abuse in family Maternal Grandfather Substance abuse in family Daughter Family history of mental disorder Paternal Grandmother Uterine cancer Maternal Uncle Throat cancer Family/Other Brain cancer Social History Housing: House Patient Tobacco Use Status: Former Tobacco user e-Cigarette/Vaping Use: Never Used Second Hand Smoke Exposure: No service: Yes Current occupational status: retired Cognitive needs: No Hearing needs: No Vision needs: Yes (Patient wears reading glasses.) Questionnaire PHQ-9 Over the last 2 weeks, how often have you been bothered by any of the following problems? 1. Little interest or pleasure in doing things: several days 2. Feeling down, depressed, or hopeless: several days 3. Trouble falling or staying asleep, or sleeping too much: several days 4. Feeling tired or having little energy: several days 5. Poor appetite or overeating: several days 6. Feeling bad about yourself - or that you are a failure or have let yourself or your family down: several days 7. Trouble concentrating on things, such as reading the newspaper or watching television: not at all 8. Moving or speaking so slowly that other people could have noticed. Or the opposite - being so fidgety or restless that you have been moving around a lot more than usual: not at all 9. Thoughts that you would be better off or of hurting yourself in some way: not at all Total score: 6 Depression Screening Interpretation: Positive Depression Screening Follow-up: Declines treatment Depression Screening Done: Yes 90306 - PHQ-9 Billing: Yes Source: Developed by Drs. Brandon Evans, Siria Pack, Wei Jefferson and colleagues, with an educational shayy from [employer]. Thrive Questionnaire Date Thrive assessed: 07/15/23 I am a: Patient What is your living situation today?: I have a steady place to live Within the past 12 months, did the food you bought not last and you didn't have the money to get more?: Never true Within the past 12 months, did you worry whether your food would run out before you got money to buy more?: I choose not to answer this question Do you have trouble paying for medicines?: I choose not to answer this question Do you have trouble getting transportation to medical appointments?: I choose not to answer this question Do you have trouble paying your heating and electricity bill?: I choose not to answer this question Do you have trouble taking care of your child, family member or friend?: I choose not to answer this question Do you have trouble with day-to-day activities such as bathing, preparing meals, shopping, managing finances, etc.?: I choose not to answer this question Are you currently unemployed and looking for a job?: I choose not to answer this question Are you interested in more education?: I choose not to answer this question Please select the resources that you would like help with: Care for elder or disabled Currently or been in a relationship where the following occur: I choose not to answer THRIVE Score: 0 MICAELA-7 AMB Questionnaire MICAELA-7 Date MICAELA - 7 assessed: 08/12/23 Source: Developed by Drs. Brandon Evans, Siria Pack, Wei Jefferson and colleagues, with an educational shayy from [employer]. Review of Systems Const Denies chills, Denies fatigue, Denies fever(s), Denies headache(s) and Denies weakness ENT Denies dizziness and Denies headache(s) Card Denies dyspnea Resp Denies cough, Denies dyspnea, Denies wheezing and Denies other (shortness of breath) Musc Denies numbness and Denies tingling Neuro Denies dizziness, Denies headache(s), Denies numbness, Denies tingling and Denies weakness Psych Denies anxiety and Denies depression Endo Denies fatigue Aller/Immun Denies wheezing Physical exam (Primary Care) Vital Signs: Last Vital Signs Temp 99.1 F 01/11/25 14:54 Pulse 73 01/11/25 14:54 Resp 14 01/11/25 14:54 BP 122/76 01/11/25 14:54 Pulse Ox 96 01/11/25 14:54 Oxygen Delivery Method Room Air 01/11/25 14:54 BMI result Body Mass Index 30.3 Tobacco/Smoking Status: Tobacco use Status Tobacco use date assessed 01/11/25 01/11/25 15:02 Patient Tobacco Use Status Former Tobacco user 01/11/25 15:02 e-Cigarette/Vaping Use Never Used 01/11/25 15:02 PHQ-9: PHQ-9 Score PHQ-9: Total score 6 01/11/25 15:02 Depression Screening Interpretation: Positive Depression Screening Follow-up: Declines treatment Thrive Assessment: Date of Thrive Assessment Date Thrive assessed 04/08/24 10/06/25 15:02 Currently or been in a relationship where the following occur: I choose not to answer Const General: well developed; No acute distress Nutritional Appearance: well nourished Orientation/consciousness: patient oriented x3 HENMT Head: Yes normocephalic and Yes atraumatic Eyes General: appearance normal, both eyes and all related structures Pupils: Equal, round and reactive pupils present EOM: EOMs intact bilaterally Resp Effort & Inspection: normal respiratory effort Auscultation: clear to auscultation bilaterally Cardio Rate: regular rate Rhythm: regular rhythm Heart sounds: S1 normal heart sound present, S2 normal heart sound present, no gallops, no murmurs and no rubs Neuro General: patient oriented x3 and gait normal Cranial nerves: Yes Equal, round and reactive pupils present Psych Affect: normal affect Coding Level of Care Code Est Pt Level 3 (94999) Diagnoses Hypercholesterolemia E78.00 Additional Codes PHQ-9 - 61446 - PHQ-9 Billing: Yes ([id number]) Assessment & Plan Assessment & Plan (1) Hypercholesterolemia: Code(s): E78.00 - Pure hypercholesterolemia, unspecified Category: Medical Plan: Patient returns to discuss cholesterol Her LDL cholesterol was very high at her last visit. She has not been able to make any significant lifestyle changes. She agrees to start a statin medication. Will send script for rosuvastatin Will recheck labs including lipids in about 2 months and review with her. Orders: Orders Lipid Panel Today E78.00 - Pure hypercholesterolemia, unspecified, Z00.00 - Encounter for general adult medical examination without abnormal findings Complete Blood Count Auto Diff Today Z00.00 - Encounter for general adult medical examination without abnormal findings UA CC w/rflx Micro + Cult Today Z00.00 - Encounter for general adult medical examination without abnormal findings TSH reflex Free T4 Today Z00.00 - Encounter for general adult medical examination without abnormal findings Comprehensive Branch. Panel Fast Today E78.00 - Pure hypercholesterolemia, unspecified, Z00.00 - Encounter for general adult medical examination without abnormal findings Microalbumin, Random (w Creat) Today I10 - Essential (primary) hypertension Vitamin B12 and Folate Today E53.8 - Deficiency of other specified B group vitamins Vitamin D 25-OH Total Today E55.9 - Vitamin D deficiency, unspecified Medications: New rosuvastatin 40 mg PO DAILY 90 tabs 3RF 90 days
--- OUTSIDE RECORDS SUMMARY | 2025-01-11 17:09 | XMS_ITS | Clinical Summary ---
Author Organization [facility] Address [address] [place] [address] Care Team Providers Care Plumbing Technician Name Role Phone Osiel Lynch MD Primary Care Provider [phone] Allergies Active Allergy Reactions Criticality Noted Date Comments Codeine Hives Medium 12/03/2019 Medications No known medications Active Problems Problem Noted Date Diagnosed Date Heme + stool 11/24/2019 Overview: Added automatically from request for surgery [id number] Social History Tobacco Use Types Packs/Day Years [...] Advance Directives For more information, please contact: [phone] Latest Code Status on File Code Status Date Activated Date Inactivated Comments Full Code 12/04/2019 8:41 AM 12/04/2019 3:44 PM This code status was ascertained in the following way: discussion with patient . Care Teams Plumbing Technician Relationship Specialty Start Date End Date Osiel Lynch MD [address] [address] PCP - General Wholesale Account Manager 11/19/19
--- OUTSIDE RECORDS SUMMARY | 2025-01-11 17:09 | XMS_ITS | Clinical Summary ---
Author Organization [address] Address [address] [place] [address] Phone Care Team Providers Care Combat Information Center Officer Name Role Phone Jeremy Kent Primary Care Provider Encounters Date Type Department Care Team Description 01/01/2025 3:21 PM EDT - 01/01/2025 11:59 PM EDT Hospital Encounter Radiology Department - [address] [phone] Encounter for screening mammogram for breast cancer Discharge Disposition: Home or Self Care from Last 3 Months Surgical History Surgery Date Site/Laterality Comments SECTION PROCEDURE: [place] DELIVERY ONLY CHOLECYSTECTOMY PROCEDURE: [place] LAPAROSCOPY SURG CHOLECYSTECTOMY Medical History Medical History Date Comments Asthma DX:Asthma Family History Medical History Relation Name Comments Breast cancer Other aunt/paternal Cancer of Small Bowel Neg Hx Colon cancer Neg Hx Kidney cancer Neg Hx Ovarian cancer Neg Hx Pancreatic cancer Neg Hx Uterine cancer Neg Hx Relation Name Status Comments Other aunt/paternal Social History Tobacco Use Types Packs/Day Years [...] Sexual Orientation Not on file Obstetrics History Para Term AB IAB SAB Ectopic Multiple Livin g Live Births 3 3 3 3 Date Outcome GA Total Labor Labor/2nd/3rd Weight Sex Type Anes PTL Masha A1 A5 Name Clin Term Term Term Last Filed Vital Signs Vital Sign Reading [...] 08/07/2023 10:36 AM EDT Plan of Treatment Health Maintenance Due Date Last Done Comments Colorectal Cancer Screening: Colonoscopy 1959 DTaP,Tdap,and Td Vaccines (1 - Tdap) 1978 Pneumococcal Vaccine: 50+ Years (1 of 2 - PCV) 1978 Zoster Vaccines (1 of 2) 2009 RSV Immunization Adult Patients (1 - Risk 60-74 years 1-dose series) 2019 Hepatitis C Screening 10/29/2023 Medicare Annual Wellness Visit 10/29/2023 Osteoporosis Screening (Bone Density Screening) 10/29/2023 Social Influencers of Health Screening 10/29/2023 Depression Screening 04/08/2024 Falls Risk Assessment 2024 COVID-19 Vaccine (1 - 2023-2 5 season) 2024 Influenza Vaccine (#1) 2024 Cervical Cancer Screening: P ap Smear 08/06/2026 08/07/2023 Breast Cancer Screening 01/01/2027 01/02/20 25, 12/24/2023, 12/24/2023 HIB Vaccines Aged Out No longer eligi [...] Procedure Name Priority Date/Time Associated Diagnosis Comments MG MAMMO DIGITAL SCREENING W JOSÉ MIGUEL BILAT Routine 01/01/2025 3:38 PM EDT Encounter for screening mammogram for breast cancer PAP SMEAR Routine 08/07/2023 from Last 3 Months or Most Recently Relevant to Health Maintenance Results * MG Mammo Digital Screening w José Miguel bilat (01/01/2025 3:38 PM EDT) Anatomical Region Laterality Modality Breast Bilateral Mammography 01/06/2025 8:39 AM EDT Impressions 01/06/2025 8:55 AM EDT Benign. BI-RADS CATEGORY: 1 - NEGATIVE RECOMMENDATION: Screening left mammogram is recommended in 1 year. Mammo Location: [facility], [address] [place] [address], [id number], . -------- FINAL REPORT -------- Dictated By: Fiordaliza Aguiar Dictated Date: 01/06/2025 08:39 ET Assigned Physician: Fiordaliza Aguiar Reviewed and Electronically Signed By: Fiordaliza Aguiar Signed Date: 01/06/2025 08:55 ET Workstation ID: [id number] Transcribed By: Self Edit Transcribed Date: 01/06/2025 08:39 ET Narrative 01/06/2025 8:55 AM EDT CLINICAL: 64 years old, Female, routine annual exam. COMPARISON: Mammogram 12/24/2023 and 12/18/2019.. TECHNIQUE: Bilateral MLO and CC views were obtained digitally with 3-D mammogram (digital breast tomosynthesis). Computer-aided detection was utilized in evaluation of this exam (CAD). FINDINGS: There is no evidence of suspicious mass or architectural distortion. No worrisome calcifications are evident. There has been no significant change from prior exam(s). BREAST DENSITY: C - The breasts are heterogeneously dense which may obscure small masses. Procedure Note Fiordaliza Aguiar MD - 01/06/2025 CLINICAL: 64 years old, Female, routine annual exam. COMPARISON: Mammogram 12/24/2023 and 12/18/2019.. TECHNIQUE: Bilateral MLO and CC views were obtained digitally with 3-Dmammogram (digital breast tomosynthesis). Computer-aided detection wasutilized in evaluation of this exam (CAD). FINDINGS: There is no evidence of suspicious mass or architectural distortion. Noworrisome calcifications are evident. There has been no significantchange from prior exam(s). BREAST DENSITY: C - The breasts are heterogeneously dense which mayobscure small masses. IMPRESSION: Benign. BI-RADS CATEGORY: 1 - NEGATIVE RECOMMENDATION: Screening left mammogram is recommended in 1 year. Mammo Location: [facility], [address] [place] [address], [id number], . -------- FINAL REPORT -------- Dictated By: Fiordaliza Aguiar Dictated Date: 01/06/2025 08:39 ET Assigned Physician: Fiordaliza Aguiar Reviewed and Electronically Signed By: Fiordaliza Aguiar Signed Date: 01/06/2025 08:55 ET Workstation ID: [id number] Transcribed By: Self Edit Transcribed Date: 01/06/2025 08:39 ET us Jeremy COTA IMG BI PROCEDURES Final Res ult * Pap smear (08/07/2023) 08/07/2023 Narrative HISTORICAL TESTING LAB RESULTING AGENCY - 08/14/2023 1:40 PM EDT [id number] THINPREP PAP, IMAGED: NEGATIVE FOR SQUAMOUS INTRAEPITHELIAL LESION AND MALIGNANCY ANGELA LUQUE , ELENI(ASCP) (CASE ELECTRONICALLY SIGNED 08 14 2023) RESULT OF APTIMA HIGH RISK HPV ASSAY: HIGH RISK HPV: NEGATIVE (SEROTYPES 16,18,31,33,35,39,45,51,52,56,58,59,66,68) COMPLETED ON 2023-08-12 ADEQUACY: SATISFACTORY ENDOCERVICAL/TRANSFORMATION ZONE COMPONENT PRESENT. SOURCE: THINPREP PAP HPV ANY DX: REFLEX 16 AND 18, CERVICAL, IMAGED CLINICAL INFORMATION: HPV ANY DIAGNOSIS. [Z01.419] Larisa Carrera CN LAB CYTOLOGY ORDERABLES [facility] al Result HISTORICAL TESTING LAB RESULTING AGENCY from Last 3 Months or Most Recently Relevant to Health Maintenance Insurance [employer] Care Teams Combat Information Center Officer Relationship Specialty Start Date End Date Jeremy Kent PA [address] [place] [phone] PCP - General 05/09/23
--- OUTSIDE RECORDS SUMMARY | 2025-01-11 17:09 | XMS_ITS | Encounter Summary ---
Author Organization [facility] Address [address] [place] [address] Care Team Providers Care Photocopying Equipment Mechanic Name Role Phone System, Provider Not In Primary Care Provider Un available Reason for Visit * Reason Comments Appointment Encounter Details Date Type Department Care Team (Late st Contact Info) Description 04/17/[address] [phone] Joana Morillo, DPM [address] [phone] Appointment Social History Tobacco Use Types Packs/Day Years [...] on file documented as of this encounter Visit Diagnoses Not on filedocumented in this encounter Care Teams Photocopying Equipment Mechanic Relationship Specialty Start Date End Date System, Provider Not In PCP - General 04/16/23 documented as of this encounter
--- OUTSIDE RECORDS SUMMARY | 2025-01-11 17:09 | XMS_ITS | Clinical Summary ---
Author Organization [facility] Address [address] [place] [address] Care Team Providers Care Regular Senior Care Provider Name Role Phone System, Provider Not In Primary Care Provider Un available Allergies Active Allergy Reactions Criticality Noted Date Comments Codeine Hives Medium 12/03/2019 received hydromorphone in past (05/25/2019) Medications sertraline (ZOLOFT) 100 MG tablet Take 100 mg by mouth. 4 Active estradiol (ESTRACE) 0.01 % vaginal cream USE 1/2 GRAM VAGINALLY NIGHTLY FOR 2 WEEK, THEN USE 1/2 GRAM VAGINALLY TWICE A WEEK 5 Active cycloSPORINE (RESTASIS) 0.05 % ophthalmic emulsionIndicat ions:Dry eye Administer 1 drop to both eyes twice daily (every 12 hours). 5.5 mL 5 Active Olopatadine HCl (PATADAY) 0.2 % Solution ophthalmic solutionIndicat ions:Itchy eyes Administer 1 drop to both eyes daily. 1 each 5 Active Social History Tobacco Use Types Packs/Day Years Used Date Smoking Tobacco: Never Smokeless Tobacco: Never Tobacco Cessation:Counseling Given: Not Answered Alcohol Use Standard Drinks/Week Comments Not Currently 0 (1 standard drink = 0.6 oz pur e alcohol) Comments Unknown Sex and Gender Information Value Date Recorded Sex Assigned at Not on file Legal Sex Female 6:18 PM EST Gender Identity Not on file Sexual Orientation Not on file Last Filed Vital Signs Vital Sign Reading Time Taken Comments Blood Pressure 130/81 04/28/2024 12:04 PM EST Pulse 61 04/28/2024 12:04 PM EST Temperature 36.7 C (98 F) 04/28/2024 12:04 PM EST Respiratory Rate 16 04/16/2023 6:32 PM EST Oxygen Saturation 95% 04/28/2024 12:04 PM EST Inhaled Oxygen Concentration - - Weight 59 kg (130 lb) 04/16/2023 6:32 PM EST Height 165.1 cm (5' 5 ) 04/16/2023 6:32 PM EST Body Mass Index 21.63 04/16/2023 6:32 PM EST Plan of Treatment Health Maintenance Due Date Last Done Comments Advance Care Planning 1960 Hepatitis C Virus Screening 1959 HIV Screening 1972 DTaP/Tdap/Td Vaccines (1 - Tdap) 1978 Pap Smear (Ages 21-65) 1980 Mammogram 1999 Colonoscopy 2004 Pneumococcal Vaccines 50+ (1 of 1 - PCV) 2009 Zoster (Shingles) Vaccine (1 of 2) 2009 DXA Bone Density (Females,Ag es 65 and older) 2024 Influenza Vaccine 11/06/2024 COVID-19 Vaccine ( - 2023-2 5 season) 2024 RSV Vaccine 60 years and old er and Patients (1 - 1-dose 75+ series) 2034 Hepatitis B Vaccines Aged Out No long er eligible based on patient's age to complete this topic Insurance [facility] [place] [facility] [facility] [place] [facility] Care Teams Regular Senior Care Provider Relationship Specialty Start Date End Date System, Provider Not In PCP - General 04/16/23
== END 2025-01-11 15:40 | disposition home or self-care (01) ==
LOC: HO.HMCFM 14:42
PROVIDERS: PCP Family Medicine; Visit Provider Family Medicine
DX: E78.00 Pure hypercholesterolemia, unspecified (principal)

== ENCOUNTER → 2025-01-11 14:41 | Outpatient (BNVA) | payer MEDICARE, SELFPAY | PROVIDERS: PCP Family Medicine; Visit Provider Family Medicine | DX: E78.00 Pure hypercholesterolemia, unspecified (principal); I10 Essential (primary) hypertension; E53.8 Deficiency of other specified B group vitamins; E55.9 Vitamin D deficiency, unspecified | CPT/HCPCS: 96127; 99212 ==